=== PATIENT | male | born 1990 | race Caucasian/White ===

== ENCOUNTER 2016-06-16 19:15 | Observation (INO) | payer OTHER ==
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
[2016-06-16 19:33] VITALS: BP 99/60; PULSE 81; BMI 25.3
[2016-06-16 19:41] VITALS: TEMP 97.8
[2016-06-16 19:58] LABS: BASOPHIL 0.1 % (0-2.0); EOSINOPHIL 0.3 % (0-4.5); MCH 25.6 pg (25.7-33.7); MCHC 32.5 g/dl (32.0-35.9); MEAN CELL VOLUME 78.8 fl (80-96); MEAN PLT VOLUME 8.9 fl (7.5-11.1); NEUTROPHILS 83.5 % (42.8-82.8); PLATELET COUNT 241 K/MM3 (134-434); RDW 13.9 % (11.9-15.9); WHITE BLOOD COUNT 13.1 K/mm3 (4.0-10.0)
[2016-06-16 20:27] LABS: ALBUMIN 4.3 g/dl (3.4-5.0); ALK PHOS 73 U/L (45-117); ANION GAP 9 (8-16); BILIRUBIN,TOTAL 0.5 mg/dL (0.2-1.0); CALCIUM 9.5 mg/dL (8.5-10.1); CO2 27 mmol/L (21-32); CREATININE 1.2 mg/dL (0.7-1.3); GLUCOSE,RANDOM 119 mg/dL (74-106); SGOT/AST 16 U/L (15-37); SGPT/ALT 33 U/L (12-78); TOT PROT 7.5 g/dl (6.4-8.2)
--- NOTE | 2016-06-17 13:19 | EKG ---
Test Reason : Blood Pressure : / mmHG Vent. Rate : 076 BPM Atrial Rate : 076 BPM P-R Int : 164 ms QRS Dur : 104 ms QT Int : 376 ms P-R-T Axes : 071 062 044 degrees QTc Int : 423 ms NORMAL SINUS RHYTHM NONSPECIFIC ST ABNORMALITY ABNORMAL ECG WHEN COMPARED WITH ECG OF 20-MAY-2016 12:45, NO SIGNIFICANT CHANGE WAS FOUND Confirmed by MD REENA, SERENE ([id number]) on 06/17/2016 1:19:29 PM Referred By: Overread By: SERENE VALLES MD
== END 2016-06-17 00:05 | disposition home or self-care (01) ==
LOC: JER 19:15 → JERBED 21:37
PROVIDERS: ADMIT Internal Medicine; ATTEND Internal Medicine
DX: G40.89 Other seizures (principal); G31.84 Mild cognitive impairment of uncertain or unknown etiology; F12.10 Cannabis abuse, uncomplicated
CPT/HCPCS: 36415; 70450-TC; 80053; 82550; 82553; 84146; 85025; 93005; 93010; 99282-25; G0378; G0479

== ENCOUNTER 2017-08-08 07:45 | Emergency (ER) | payer OTHER ==
--- NOTE | 2017-08-08 07:53 | PDOC ---
History of Present Illness - General Stated Complaint: SEIZURE Time Seen by Provider: 08/08/17 07:52 - History of Present Illness Initial Comments: 08/08/17 08:15 Mr. Wahl is a 26 yo male w/ prior history of seizures who presents after witnessed seizure earlier today. Per girlfriend who is accompanying him he "jumped out of bed" and started shaking all over his body and foaming at the mouth. They report he was disoriented for approximately 15 minutes after this and then came to get checked out. Mr. Wahl reports he has been intermittent with his proscribed 100mg TID dilantin but that he has been taking a bar of xanax 3-4 times / week and not sleeping much. He has previously seen a neurologist before but recently decided to change to a different one and has an appointment scheduled for Saturday. The patient denies chest pain, shortness of breath, headache and dizziness. Denies fever, chills, nausea, vomit, diarrhea and constipation. Denies dysuria, frequency, urgency and hematuria. Allergies: NKDA Past History - Past Medical History Allergies/Adverse Reactions: Allergies Allergy/AdvReac Type Severity Reaction Status Date / Time No Known Allergies Allergy Verified 08/08/17 07:49 Home Medications: Ambulatory Orders No Home Medications 0 dose .ROUTE UTDICT 04/08/12 levETIRAcetam [Keppra -] 500 mg PO BID #60 tablet 06/16/16 - Surgical History Appendectomy: Yes - Immunization History Immunization Up to Date: Yes - Suicide/Smoking/Psychosocial Hx Smoking Status: No Smoking History: Never smoked Have you smoked in the past 12 months: No Number of Cigarettes Smoked Daily: 0 Hx Alcohol Use: No Drug/Substance Use Hx: Yes (Marijuana) Substance Use Type: Marijuana Review of Systems - Review of Systems Comments:: 08/08/17 08:23 GENERAL/CONSTITUTIONAL: No fever or chills. No weakness. HEAD, EYES, EARS, NOSE AND THROAT: No change in vision. No ear pain or discharge. No sore throat. CARDIOVASCULAR: No chest pain or shortness of breath RESPIRATORY: No cough, wheezing, or hemoptysis. GASTROINTESTINAL: No nausea, vomiting, diarrhea or constipation. GENITOURINARY: No dysuria, frequency, or change in urination. MUSCULOSKELETAL: No joint or muscle swelling or pain. No neck or back pain. SKIN: No rash NEUROLOGIC: +Seizing as described - last in June ENDOCRINE: No increased thirst. No abnormal weight change HEMATOLOGIC/LYMPHATIC: No anemia, easy bleeding, or history of blood clots. ALLERGIC/IMMUNOLOGIC: No hives or skin allergy. *Physical Exam - Physical Exam Comments: 08/08/17 08:25 GENERAL: Awake, alert, and fully oriented, in no acute distress HEAD: No signs of trauma, normocephalic, atraumatic EYES: PERRLA, EOMI, sclera anicteric, conjunctiva clear ENT: Auricles normal inspection, hearing grossly normal, nares patent, oropharynx clear without exudates. Moist mucosa NECK: Normal ROM, supple, no lymphadenopathy, JVD, or masses LUNGS: No distress, speaks full sentences, clear to auscultation bilaterally HEART: Regular rate and rhythm, normal S1 and S2, no murmurs, rubs or gallops, peripheral pulses normal and equal bilaterally. ABDOMEN: Soft, nontender, normoactive bowel sounds. No guarding, no rebound. No masses EXTREMITIES: Normal inspection, Normal range of motion, no edema. No clubbing or cyanosis. NEUROLOGICAL: Cranial nerves II through XII grossly intact. Normal speech, normal gait, no focal sensorimotor deficits SKIN: Warm, Dry, normal turgor, no rashes or lesions noted. ED Treatment Course - LABORATORY CBC & Chemistry Diagram: 08/08/17 09:05 08/08/17 09:05 Medical Decision Making - Medical Decision Making 08/08/17 08:25 Mr. Wahl is a 26 yo male w/ pmh of seizures who presents post described generalized tonic/clonic seizure with post-ictal state. Patient counseled that xanax, lack of sleep, and intermittent medication use will lower seizure threshold and make him more at risk. Patient verbalized understanding and reports that he will follow-up with Dr. Saunders on Saturday at appointment. 08/08/17 10:01 Basic labs unconcerning as below. Will discharge patient with instructions to take seizure prophylaxis as written and follow-up with Dr. Saunders on Saturday. Discussed increase in Creatinine with patient and need to f/u with PCP for further testing. Slightly elevated AST/ALT noted without concern as patient's abdominal exam non-concerning; copy of bloodwork given to patient as well to trend over time. Patient verbalized understanding and agreement with plan and will comply. Laboratory Results - last 24 hr 08/08/17 08/08/17 09:05 09:05 WBC 10.4 H RBC 5.46 Hgb 14.5 Hct 46.0 MCV 84.2 MCH 26.5 MCHC 31.5 L RDW 15.1 Plt Count 282 MPV 9.4 Neutrophils % 62.9 D Lymphocytes % 25.6 D Monocytes % 9.6 Eosinophils % 1.3 D Basophils % 0.6 D Sodium 135 L Potassium 4.4 Chloride 101 Carbon Dioxide 27 Anion Gap 7 L BUN 11 Creatinine 1.4 H Creat Clearance w eGFR > 60 Random Glucose 79 D Calcium 8.4 L Total Bilirubin 0.4 AST 76 H D ALT 85 H D Alkaline Phosphatase 70 Total Protein 6.9 Albumin 3.8 *DC/Admit/Observation/Transfer Diagnosis at time of Disposition: Seizure - Discharge Dispostion Disposition: HOME - Referrals Referrals: Josiah Saunders MD [Staff Physician] - - Patient Instructions Printed Discharge Instructions: DI for Seizure (Not Epilepsy/Seizure Disorder) Additional Instructions: Please follow-up with your neurologist at your Saturday appointment as discussed. It is very important you take your dilantin as proscribed and decrease behaviors that lower your seizure threshold (drinking alcohol, using medications such as xanax, getting poor sleep). Please return if any further seizure, altered mental status, pain, fever, or other concerning symptoms. - Post Discharge Activity
[2017-08-08 07:55] VITALS: BMI 26.6
[2017-08-08] MEDS ORDERED: PHENYTOIN SODIUM 100 MG/2 ML VIAL IVPB ONE (08:18)
--- NOTE | 2017-08-08 08:23 | PDOC ---
Attending Attestation - HPI HPI: 08/08/17 08:24 The patient is a 26 year old male with a significant PMH of seizures ( intermittently compliant with Dilantin) and Xanax abuse who presents to the emergency department s/p witnessed seizure approximately 1 hour ago. He reports being in bed this morning with his girlfriend when he fell out of bed and began seizing for about 5 minutes with 15 minutes of post-ictal state. The patient is alert and awake at presentation. He has intermittently followed up with Neuro in the past but notes he has an appointment with Dr. Saunders on Saturday. He denies any other complaints. Allergies: NKA PCP: None reported. - Physicial Exam PE: 08/08/17 08:24 Vitals: Triage Vital signs reviewed General Appearance: no acute distress, well nourished well developed, Head: Atraumatic, normocephalic Eyes: Pupils equal reactive round, extraocular movement intact Cardiac: Regular rate and rhythm, no murmurs, no rubs, no gallops, Lungs: Clear to auscultation bilateral, good air movement bilaterally, Abdomen: Soft, nondistended, normal bowel sounds, nontender to palpation Extremities: Full range of motion to all extremities, no cyanosis, clubbing, or edema Neuro: AOX3; Cranial Nerves 2-12 grossly intact, Strength intact to all extremities, Sensation intact to all extremities Psych: normal mood, normal affect <Edmar Geronimo - Last Filed: 08/08/17 09:09> - Resident Resident Name: Maxwell Valencia - ED Attending Attestation I have performed the following: I have examined & evaluated the patient, The case was reviewed & discussed with the resident, I agree w/resident's findings & plan, Exceptions are as noted - Medical Decision Making 08/08/17 10:23 26 years old past medical history significant for seizure disorder noncompliant with Keppra presents to the ED with a generalized tonic-clonic seizure with a slight postictal period normal neurologic examination at this time. Patient's back to his baseline mental status. States that he has been staying up late at night has been recreationally using drugs and noncompliant with his Keppra Here in the emergency department we have loaded him with 1 g of dilantin. His labs are notable for slightly elevated creatinine and slightly elevated LFTs. These findings were discussed length with patient he will hydrate avoid drugs and follow-up with his doctor next week to have these rechecked. He states he has enough of his dilantin at home. He has a neurology follow-up appointment on Saturday Findings, need follow-up, strict return instructions discussed with patient. 08/08/17 15:16 <Khanh Lorenzo - Last Filed: 08/08/17 15:16>
[2017-08-08] MEDS ORDERED: PHENYTOIN NA EXTENDED 100 MG CAPSULE (FP) PO ONE (08:28)
[2017-08-08 09:24] LABS: BASO % 0.6 % (0-2.0); EOS % 1.3 % (0-4.5); HEMOGLOBIN 14.5 GM/dL (11.7-16.9); LYMPH % 25.6 % (8-40); MCH 26.5 pg (25.7-33.7); MCHC 31.5 g/dl (32.0-35.9); MEAN CELL VOLUME 84.2 fl (80-96); MEAN PLT VOLUME 9.4 fl (7.5-11.1); MONO % 9.6 % (3.8-10.2); NEUT % 62.9 % (42.8-82.8); PLATELET COUNT 282 K/MM3 (134-434); RBC 5.46 M/mm3 (4.00-5.60); RDW 15.1 % (11.9-15.9); WHITE BLOOD COUNT 10.4 K/mm3 (4.0-10.0)
[2017-08-08 09:48] LABS: ALBUMIN 3.8 g/dl (3.4-5.0); ANION GAP 7 (8-16); BILIRUBIN,TOTAL 0.4 mg/dL (0.2-1.0); BLOOD UREA NITROGEN 11 mg/dL (7-18); CALCIUM 8.4 mg/dL (8.5-10.1); CHLORIDE 101 mmol/L (98-107); CO2 27 mmol/L (21-32); CREATININE 1.4 mg/dL (0.7-1.3); GLUCOSE,RANDOM 79 mg/dL (74-106); SGPT/ALT 85 U/L (12-78); SODIUM 135 mmol/L (136-145); TOT PROT 6.9 g/dl (6.4-8.2)
[2017-08-08 09:49] LABS: ALK PHOS 70 U/L (45-117)
[2017-08-08 09:50] LABS: POTASSIUM 4.4 mmol/L (3.5-5.1); SGOT/AST 76 U/L (15-37)
[2017-08-08 10:46] VITALS: BP 132/87; PULSE 84; TEMP 98.2
--- NOTE | 2017-08-08 16:08 | EKG ---
Test Reason : Blood Pressure : / mmHG Vent. Rate : 079 BPM Atrial Rate : 079 BPM P-R Int : 172 ms QRS Dur : 096 ms QT Int : 368 ms P-R-T Axes : 072 053 023 degrees QTc Int : 421 ms NORMAL SINUS RHYTHM POSSIBLE LEFT ATRIAL ENLARGEMENT NONSPECIFIC ST AND T WAVE ABNORMALITY ABNORMAL ECG WHEN COMPARED WITH ECG OF 16-JUN-2016 19:41, NO SIGNIFICANT CHANGE WAS FOUND Confirmed by MAGAN RING, MARCE ([id number]) on 08/08/2017 4:08:09 PM Referred By: Confirmed By:MARCE CARRERO MD
== END 2017-08-08 10:45 | disposition home or self-care (01) ==
LOC: JER 07:45
DX: R56.9 Unspecified convulsions (principal)
CPT/HCPCS: 36415; 80053; 85025; 93005; 93010; 99284-25

== ENCOUNTER 2017-09-29 01:33 | Emergency (ER) | payer OTHER ==
--- NOTE | 2017-09-29 02:01 | PDOC ---
History of Present Illness - General History Source: Patient, Parent(s) (Mother ) - History of Present Illness Initial Comments: 09/29/17 04:22 The patient is a 26 year old male with significant past medical history of seizures is brought to the ED accompanied by his mother post seizure episode earlier today. The patient states he blackout and doesnt recall the incident. As per the mother, the patient was lying on the bed when the episode manifested and he fell off the bed. The patient states he tried to catch his body with his hand which resulted in a sprain to his left pinky, pain to his right forearm, lower jaw redness and tenderness to his right cheeks. Social History: Patient reports the use of Marijuana. Denies the use of any other recreational drugs, denies history of smoking and the use of alcohol. Allergies: None reported. <Dolores Laird - Last Filed: 09/29/17 04:22> <Sarah Curran - Last Filed: 09/30/17 04:48> - General Chief Complaint: Seizure Stated Complaint: SEIZURE Time Seen by Provider: 09/29/17 01:58 Past History <Dolores Laird - Last Filed: 09/29/17 04:22> - Past Medical History COPD: No Seizures: Yes - Surgical History Appendectomy: Yes - Immunization History Immunization Up to Date: Yes - Suicide/Smoking/Psychosocial Hx Smoking Status: No Smoking History: Never smoked Have you smoked in the past 12 months: No Number of Cigarettes Smoked Daily: 0 Hx Alcohol Use: No Drug/Substance Use Hx: Yes (marijuana) Substance Use Type: Marijuana Hx Substance Use Treatment: No <Sarah Curran - Last Filed: 09/30/17 04:48> - Past Medical History Allergies/Adverse Reactions: Allergies Allergy/AdvReac Type Severity Reaction Status Date / Time No Known Allergies Allergy Verified 08/30/17 15:44 Home Medications: Ambulatory Orders Phenytoin Na Extended [Dilantin -] 200 mg PO BID #60 capsule 08/09/17 Phenytoin Na Extended [Dilantin -] 200 mg PO BID #120 capsule 09/29/17 Review of Systems - Review of Systems Able to Perform ROS?: Yes Comments:: 09/29/17 04:22 GENERAL/CONSTITUTIONAL: No fever or chills. No weakness. HEAD, EYES, EARS, NOSE AND THROAT: No change in vision. No ear pain or discharge. No sore throat. CARDIOVASCULAR: No chest pain or shortness of breath. RESPIRATORY: No cough, wheezing, or hemoptysis. GASTROINTESTINAL: No nausea, vomiting, diarrhea or constipation. GENITOURINARY: No dysuria, frequency, or change in urination. MUSCULOSKELETAL: (+) left pinky swollen and dislocated. (+) Jaw redness. (+) pain on the cheek bone. No muscle swelling. No neck or back pain. SKIN: No rash NEUROLOGIC: (+) Loss of consciousness, episode of seizure. No headache, vertigo , or change in strength/sensation. ENDOCRINE: No increased thirst. No abnormal weight change. HEMATOLOGIC/LYMPHATIC: No anemia, easy bleeding, or history of blood clots. ALLERGIC/IMMUNOLOGIC: No hives or skin allergy. <Dolores Laird - Last Filed: 09/29/17 04:22> *Physical Exam - Vital Signs Last Vital Signs Temp Pulse Resp BP Pulse Ox 96.1 F L 75 17 132/78 100 09/29/17 01:40 09/29/17 01:40 09/29/17 01:40 09/29/17 01:40 09/29/17 01:40 - Physical Exam Comments: 09/29/17 04:23 GENERAL: Awake, alert, and fully oriented X3, in no acute distress HEAD: No signs of trauma EYES: PERRLA, EOMI, sclera anicteric, conjunctiva clear ENT: Auricles normal inspection, hearing grossly normal, nares patent, oropharynx clear without exudates. Moist mucosa NECK: Normal ROM, supple, no lymphadenopathy, JVD, or masses LUNGS: Breath sounds equal, clear to auscultation bilaterally. No wheezes, and no crackles HEART: Regular rate and rhythm, normal S1 and S2, no murmurs, rubs or gallops ABDOMEN: Soft, nontender, normoactive bowel sounds. No guarding, no rebound. No masses EXTREMITIES: (+) Left pinky dislocated ([place] neck deformity). Tenderness to palpation of the right zygomatic bone. (+) abrasion on the chin. Normal range of motion, no edema. No clubbing or cyanosis. No cords. NEUROLOGICAL: No nystagmus. Cranial nerves II through XII grossly intact. Normal speech, normal gait SKIN: Warm, Dry, normal turgor, no rashes or lesions noted. <Dolores Laird - Last Filed: 09/29/17 04:22> ED Treatment Course - ADDITIONAL ORDERS Additional order review: Laboratory Results 09/29/17 03:06 Phenytoin < 2.5 L - Medications Given in the ED: ED Medications Discontinued Medications Generic Name Dose Route Start Last Admin Trade Name Amelia PRN Reason Stop Dose Admin Bacitracin 1 applic 09/29/17 02:10 09/29/17 02:46 Bacitracin - TP 09/29/17 02:11 1 strip ONCE ONE Administration Diphtheria/Tetanus/Acell Pertussis 0.5 ml 09/29/17 02:10 09/29/17 02:45 Boostrix - IM 09/29/17 02:11 0.5 ml .ONCE ONE Administration Oxycodone/Acetaminophen 2 combo 09/29/17 02:41 09/29/17 02:45 Percocet 5/325 - PO 09/29/17 02:42 2 combo ONCE ONE Administration <Dolores Laird - Last Filed: 09/29/17 04:22> Medical Decision Making - Medical Decision Making 09/29/17 04:25 Patient Name: NICK WALL THIS IS A PRELIMINARY REPORT FROM [facility] DATE OF SERVICE: 2017-09-29 03:42:42 IMAGES: [id number] EXAM: HEAD CT WITHOUT CONTRAST HISTORY: Seizure COMPARISON: None. FINDINGS: The ventricular system is midline and nondilated. The sulcal pattern is normal for the patient's age. There is no bleed, mass, extra-axial fluid collection or mass effect. No skull fracture or skull lesion is identified. The visualized paranasal sinuses and mastoid air cells are clear. IMPRESSION: Normal exam Patient Name: NICK WALL THIS IS A PRELIMINARY REPORT FROM [facility] DATE OF SERVICE: 2017-09-29 03:45:10 IMAGES: [id number] EXAM: FACIAL BONES CT W/O CONTRAST HISTORY: Seizure COMPARISON: None. FINDINGS: The intraorbital contents are intact. The sinuses and visualized mastoid air cells are well aerated other than mild left ethmoid sinus mucosal thickening. There is no fracture. IMPRESSION: No fracture. 09/30/17 04:48 Pt loaded with phosphenytoin and he will be signed out to the day team. <Sarah Curran - Last Filed: 09/30/17 04:48> *DC/Admit/Observation/Transfer - Attestations Scribe Attestion: 09/29/17 04:23 Documentation prepared by Dolores Laird, acting as medical policy specialist for Sarah Curran MD. <Dolores Laird - Last Filed: 09/29/17 04:22> - Discharge Dispostion Admit: No <Sarah Curran - Last Filed: 09/30/17 04:48> Diagnosis at time of Disposition: Seizure, Finger dislocation - Discharge Dispostion Disposition: HOME Condition at time of disposition: Stable - Prescriptions Prescriptions: Phenytoin Na Extended [Dilantin -] 200 mg PO BID #120 capsule - Patient Instructions Printed Discharge Instructions: DI for Finger Dislocation, DI for Seizure Disorder -- Child
[2017-09-29 02:05] VITALS: BP 132/78; PULSE 75; TEMP 96.1; BMI 28.4
[2017-09-29] MEDS ORDERED: DIPHTH,PERTUSS(ACELL),TET 0.5 ML DISP.SYRIN IM ONE (02:10)
[2017-09-29] MEDS ORDERED: BACITRACIN 15 GM TUBE TOPICAL OINTMENT TP ONE (02:10)
[2017-09-29] MEDS ORDERED: LIDOCAINE HCL 2% (50ML VIAL) INF ONE (04:28)
[2017-09-29] MEDS ORDERED: FOSPHENYTOIN SODIUM 1,000 MG in SODIUM CHLORIDE 100 ML IVPB ONE (04:31)
[2017-09-29] MEDS ORDERED: LIDOCAINE HCL 2% (20ML MULTI-DOSE VIAL) NR ONE (04:51)
[2017-09-29] MEDS ORDERED: FOSPHENYTOIN SODIUM 100 MG/2 ML VIAL ONE (05:24)
== END 2017-09-29 06:10 | disposition home or self-care (01) ==
LOC: JER 01:33
PROC: 3E0234Z Introduction of Serum, Toxoid and Vaccine into Muscle, Percutaneous Approach (ICD-10-PCS; principal; 2017-09-29)
PROC: 3E033GC Introduction of Other Therapeutic Substance into Peripheral Vein, Percutaneous Approach (ICD-10-PCS; 2017-09-29)
DX: G40.909 Epilepsy, unspecified, not intractable, without status epilepticus (principal); S63.276A Dislocation of unspecified interphalangeal joint of right little finger, initial encounter; S00.83XA Contusion of other part of head, initial encounter; S09.93XA Unspecified injury of face, initial encounter; W06.XXXA Fall from bed, initial encounter; Y93.89 Activity, other specified; Y92.032 Bedroom in apartment as the place of occurrence of the external cause
CPT/HCPCS: 36415; 70450-TC; 70486-TC; 73140-TC-LT-FY; 80185; 90471; 90715; 96374; 99284-25

== ENCOUNTER 2017-11-29 15:39 | Emergency (ER) | payer OTHER ==
[2017-11-29 15:57] VITALS: BP 103/68; PULSE 74; TEMP 97.4; BMI 25.8
--- NOTE | 2017-11-29 16:02 | PDOC ---
History of Present Illness - General Chief Complaint: Seizure Stated Complaint: SEIZURE Time Seen by Provider: 11/29/17 15:57 - History of Present Illness Initial Comments: 11/29/17 16:01 27 yo M with h/o epilepsy (x 2 years 10+ seizures) who p/w closed head injury s/ p suspected seizure. Patient with unwitnessed seizure at 2:30 PM. Friends and family at bedside to assist in report. Patient cousin states that patient went upstairs and came back down stairs 8 minutes later with abrasions to the head, and blood in mouth. Patient was ambulating without difficulty, but confused and unintelligible, and non responsive to questions for 30 minutes. Patient does not recall LOC, fall, but reports diffuse headache, and multiple episodes of blood streaked emesis (now resolved). Patient in usual state of health prior to event. Last seizure 1 1/2 month ago per patient. He reports missing his home dose of anti-convulsive medication ( 200 mg Dilantin BID and Lamictal 75 mg BID ) yesterday evening, but reports taking his home dose today. Recently received head MRI 3 days ago. No longer on Keppra 500 mg d/t unfavorable SE profile. Denies F/C, N/V, vertigo, hearing loss, tinnitus, vision change, CP, SOB, abdominal pain, diarrhea, constipation, urinary complaints,back pain, neck pain , weakness, lightheadedness, sensory changes. PMHx: as noted above. Does not follow with neruology. States that he receives his medication from unknown physician on [facility]. ROS: as noted above SHx: Denies Etoh, or tobacco use. Reports daily recreational cannabis/marijuana (non prescribed) for seizure control. Allergies: NKDA Past History - Past Medical History Allergies/Adverse Reactions: Allergies Allergy/AdvReac Type Severity Reaction Status Date / Time No Known Allergies Allergy Verified 11/29/17 15:45 Home Medications: Ambulatory Orders Phenytoin Na Extended [Dilantin -] 200 mg PO BID #120 capsule 09/29/17 Lamotrigine [Lamictal -] 75 mg PO BID 11/29/17 COPD: No Seizures: Yes - Surgical History Abdominal Surgery: Yes (hernia) Appendectomy: Yes - Immunization History Immunization Up to Date: Yes - Suicide/Smoking/Psychosocial Hx Smoking Status: No Smoking History: Never smoked Have you smoked in the past 12 months: No Number of Cigarettes Smoked Daily: 0 Information on smoking cessation initiated: No Hx Alcohol Use: No Drug/Substance Use Hx: Yes Substance Use Type: Marijuana Hx Substance Use Treatment: No Review of Systems - Review of Systems Comments:: 11/29/17 16:01 GENERAL/CONSTITUTIONAL: No fever or chills. No weakness. HEAD, EYES, EARS, NOSE AND THROAT: No change in vision. No ear pain or discharge. No sore throat. CARDIOVASCULAR: No chest pain or shortness of breath RESPIRATORY: No cough, wheezing, or hemoptysis. GASTROINTESTINAL: No nausea, vomiting, diarrhea or constipation. GENITOURINARY: No dysuria, frequency, or change in urination. MUSCULOSKELETAL: No joint or muscle swelling or pain. No neck or back pain. SKIN: No rash NEUROLOGIC: + headache. No vertigo, loss of consciousness, or change in strength /sensation. ENDOCRINE: No increased thirst. No abnormal weight change HEMATOLOGIC/LYMPHATIC: No anemia, easy bleeding, or history of blood clots. ALLERGIC/IMMUNOLOGIC: No hives or skin allergy. *Physical Exam - Vital Signs Last Vital Signs Temp Pulse Resp BP Pulse Ox 97.4 F L 74 20 103/68 100 11/29/17 15:54 11/29/17 15:54 11/29/17 15:54 11/29/17 15:54 11/29/17 15:54 - Physical Exam Comments: 11/29/17 16:01 GENERAL: Awake, alert, and fully oriented, in no acute distress HEAD:+ frontal ecchymosis and abrasions. No lacerations. EYES: PERRLA, EOMI, sclera anicteric, conjunctiva clear ENT: + Bilateral tongue lacerations, with absent teeth avulsions. Auricles normal inspection, hearing grossly normal, nares patent, oropharynx clear without exudates. Moist mucosa NECK: Normal ROM, supple, no lymphadenopathy, JVD, or masses LUNGS: No distress, speaks full sentences, clear to auscultation bilaterally HEART: Regular rate and rhythm, normal S1 and S2, no murmurs, rubs or gallops, peripheral pulses normal and equal bilaterally. ABDOMEN: Soft, nontender, normoactive bowel sounds. No guarding, no rebound. No masses EXTREMITIES : Normal inspection, Normal range of motion, no edema. No clubbing or cyanosis. NEUROLOGICAL: Cranial nerves II through XII grossly intact. Normal speech, normal gait, no focal sensorimotor deficits SKIN: Warm, Dry, normal turgor, no rashes or lesions noted ED Treatment Course - LABORATORY CBC & Chemistry Diagram: 11/29/17 17:09 11/29/17 17:09 Medical Decision Making - Medical Decision Making 11/29/17 17:00 27 yo M with h/o epilepsy (x 2 years) who p/w closed head injury s/p suspected seizure. VSS, AF, A&Ox3. Patient with signs of head injury, following probable unwitnessed convulsions in setting of seizure disorder, new onset tongue lacerations, postictal weakness/confusion, and missed dose of anti-convulsant medications. [place] CT head rule neg and C-spine neg nexus criteria. Will assess for possible precipitators of seizure with potential to lower seizure threshold, electrolyte abnml, toxic or metabolic derangements,acid-base disturbances, or underlying infection. ED Course: CBC, CMP, Dilantin, UA EKG, CXR 100 mg Lamictal 11/29/17 19:38 Phenytoin 2.7 WBC:15.9 CMP: Unremarkable UA: Neg Etoh: Neg Patient with second witnessed seizure in hallway, with absent LOC, head/neck/ back trauma at 09:00PM. Received 2 Ativan and his Loading dose of Phenytoin given. 1090 mg. + episode of urinary incontinence, tongue biting, and AMS. 11/29/17 22:08 Patient no longer postictal, A&Ox3, VSS. 11/29/17 23:42 Patient stable for d/c with return precautions. *DC/Admit/Observation/Transfer - Referrals - Patient Instructions Additional Instructions: Please return to the emergency department with any new or worsening symptoms or concerns. Please follow up with your primary care physician within 72 hours. - Post Discharge Activity - Attestations Physician Attestion: 11/29/17 16:02 I attest to the information provided in this note.
[2017-11-29 17:35] LABS: BASO % 0.4 % (0-2.0); EOS % 0.6 % (0-4.5); HEMATOCRIT 43.6 % (35.4-49); HEMOGLOBIN 14.4 GM/dL (11.7-16.9); LYMPH % 10.8 % (8-40); MCH 27.4 pg (25.7-33.7); MEAN CELL VOLUME 82.9 fl (80-96); MEAN PLT VOLUME 9.4 fl (7.5-11.1); MONO % 7.9 % (3.8-10.2); NEUT % 80.3 % (42.8-82.8); PLATELET COUNT 235 K/MM3 (134-434); RBC 5.25 M/mm3 (4.00-5.60); RDW 14.3 % (11.9-15.9); WHITE BLOOD COUNT 15.9 K/mm3 (4.0-10.0)
[2017-11-29 17:39] LABS: URINE APPEARANCE CLEAR; URINE BILIRUBIN NEGATIVE (<2.0 mg/dL); URINE BLOOD NEGATIVE (NEGATIVE); URINE COLOR STRAW; URINE GLUCOSE (UA) NEGATIVE (NEGATIVE); URINE KETONE NEGATIVE (NEGATIVE); URINE LEUK ESTERASE NEGATIVE (NEGATIVE); URINE NITRITE NEGATIVE (NEGATIVE); URINE UROBILINOGEN NEGATIVE mg/dL (0.2-1.0)
[2017-11-29 17:46] LABS: URINE PROTEIN 1+ (NEGATIVE)
[2017-11-29 17:49] LABS: INR 0.97 (0.82-1.09)
[2017-11-29] MEDS ORDERED: lamoTRIgine 100 MG TABLET (FP) PO ONE (17:49)
--- NOTE | 2017-11-29 17:49 | PDOC ---
Attending Attestation - Resident Resident Name: Sushant Maynard - ED Attending Attestation I have performed the following: I have examined & evaluated the patient, The case was reviewed & discussed with the resident, I agree w/resident's findings & plan, Exceptions are as noted - Medical Decision Making 11/29/17 17:48 27yoM w/ hx of seizure d/o presents w/ seizure in setting of missing his seizure meds last night. Seems to have had typical seizure for him today. - labs w/ dilantin level - load meds - DC if all urnemarkble. <Linda Abdullahi - Last Filed: 11/29/17 17:48> - HPI HPI: 11/29/17 19:39 The patient is a 27 year old male with a significant PMH of seizures secondary to epilepsy and Xanax abuse who presents to the emergency department with a seizure about 3 hours ago. The patient reports that he was at home earlier today when he had his seizure episode. The patient reports that he experienced associated bloody vomiting secondary to tongue biting. The patient states that he missed his doses of medication last night. The patient states though that he took his doses earlier today.He denies any symptoms prior to his seizure. The patient replies that he does not usually know when his episode is going to happen. He states that his last seizure episode was about 1 month ago. The patient denies any other symptoms at time of exam. He denies chest pain, shortness of breath, headache and dizziness. He denies fever, chills, nausea, vomit, diarrhea, constipation or urinary symptoms. The patient denies any other complaints. - Physicial Exam PE: 11/29/17 19:42 General Physical Exam:Awake, alert, and fully oriented, in no acute distress HEENT:(+)bruises around face. EOMI, AISHWARYA MMM, OP WNL NCAT, no midline cervical tenderness CARDIO:RRR, nl s1/s2, no m/r/g LUNGS:CTABL, no w/r/r ABDOMEN:Soft, NTND EXTREMITIES:No edema, WWP, no rash NEURO:Neuro grossly intact, gait WNL, moving all 4 A&O x 3, mood/affect WNL. Documentation prepared by Olamide Arellano, acting as biomedical engineering technologist for Linda Abdullahi MD. <Olamide Arellano - Last Filed: 11/29/17 19:42>
[2017-11-29 17:53] LABS: ALBUMIN 4.4 g/dl (3.4-5.0); ANION GAP 6 (8-16); BLOOD UREA NITROGEN 11 mg/dL (7-18); CALCIUM 9.5 mg/dL (8.5-10.1); CHLORIDE 105 mmol/L (98-107); CO2 27 mmol/L (21-32); GLUCOSE,RANDOM 91 mg/dL (74-106); POTASSIUM 4.2 mmol/L (3.5-5.1); SODIUM 138 mmol/L (136-145)
[2017-11-29 18:19] LABS: ALK PHOS 94 U/L (45-117); BILIRUBIN,TOTAL 0.2 mg/dL (0.2-1.0); SGOT/AST 22 U/L (15-37); SGPT/ALT 31 U/L (12-78); TOT PROT 7.7 g/dl (6.4-8.2)
[2017-11-29 18:30] LABS: URINE BACTERIA RARE /hpf (NONE SEEN); URINE MUCUS RARE
[2017-11-29] MEDS ORDERED: lamoTRIgine 25 MG TABLET ONE ×2 (18:43→18:44)
[2017-11-29] MEDS ORDERED: PHENYTOIN SODIUM 100 MG/2 ML VIAL IVPB ONE (19:38)
[2017-11-29] MEDS ORDERED: PHENYTOIN SODIUM IVPB ONE (20:15)
[2017-11-29] MEDS ORDERED: SODIUM CHLORIDE IVPB ONE (20:15)
[2017-11-29] MEDS ORDERED: LORazepam 2 MG/ML SDV VIAL ONE (20:34)
[2017-11-29] MEDS ORDERED: ONDANSETRON 4 MG/2 ML VIAL IVPB ONE (22:53)
[2017-11-29] MEDS ORDERED: ONDANSETRON 4 MG/2 ML VIAL ONE (23:00)
--- NOTE | 2017-11-30 17:49 | EKG ---
Test Reason : Blood Pressure : / mmHG Vent. Rate : 067 BPM Atrial Rate : 067 BPM P-R Int : 170 ms QRS Dur : 100 ms QT Int : 404 ms P-R-T Axes : 062 051 045 degrees QTc Int : 426 ms NORMAL SINUS RHYTHM NORMAL ECG WHEN COMPARED WITH ECG OF 08-AUG-2017 09:24, NO SIGNIFICANT CHANGE WAS FOUND Confirmed by NASIR ANTHONY MD ([id number]) on 11/30/2017 5:48:33 PM Referred By: Confirmed By:NASIR ANTHONY MD
== END 2017-11-30 02:21 | disposition home or self-care (01) ==
LOC: JER 15:39
DX: G40.909 Epilepsy, unspecified, not intractable, without status epilepticus (principal); S00.83XA Contusion of other part of head, initial encounter; S01.512A Laceration without foreign body of oral cavity, initial encounter; R41.82 Altered mental status, unspecified; Z91.14 Patient's other noncompliance with medication regimen; X58.XXXA Exposure to other specified factors, initial encounter; Y93.89 Activity, other specified; Y92.018 Other place in single-family (private) house as the place of occurrence of the external cause; Y99.8 Other external cause status
CPT/HCPCS: 36415; 71045-TC-FY; 80053; 80185; 80307; 81003; 81015; 85025; 85610; 86850; 86900; 86901; 93005; 93010; 99284-25

== ENCOUNTER 2018-01-19 22:51 | Emergency (ER) | payer OTHER ==
[2018-01-19 23:05] VITALS: BMI 25.0
--- NOTE | 2018-01-20 00:06 | PDOC ---
Attending Attestation - Resident Resident Name: PedroElisa - ED Attending Attestation I have performed the following: I have examined & evaluated the patient, The case was reviewed & discussed with the resident, I agree w/resident's findings & plan - Medical Decision Making 01/20/18 01:59 Patient Name: NICK WALL THIS IS A PRELIMINARY REPORT FROM [employer]PER[employer] DATE OF SERVICE: 2018-01-20 00:35:59 IMAGES: [id number] EXAM: CERVICAL SPINE CT W/O CONTR HISTORY: Status post fall COMPARISON: None. FINDINGS: There is no fracture, subluxation, prevertebral soft tissue swelling or significant degenerative changes. The lung apices are clear. IMPRESSION: No fracture. Patient Name: NICK WALL THIS IS A PRELIMINARY REPORT FROM [employer]PERATOR DATE OF SERVICE: 2018-01-20 00:48:08 IMAGES: [id number] EXAM: HEAD CT WITHOUT CONTRAST HISTORY: Status post fall COMPARISON: None. FINDINGS: The ventricular system is midline and nondilated. The sulcal pattern is normal for the patient's age. There is no bleed, mass, extra-axial fluid collection or mass effect. No skull fracture or skull lesion is identified. The visualized paranasal sinuses and mastoid air cells are clear. IMPRESSION: Normal exam. <Sarah Curran - Last Filed: 01/20/18 01:58> - HPI HPI: 01/20/18 01:41 The patient is a 27-year-old male with a past medical history of epilepsy (x 2 years 10+ seizures, on Dilantin, presents to the emergency department s/p an unwitnessed seizure. The patient states he was walking down [facility], when he lost consciousness for an unknown amount of times, patient reports he doesnt remember the incident. The patient states he was found by his brother, who assisted him. The patient reports associated concern of neck pain/stiffness. The patient states hes been non-compliant with Lamictal for the past 2 weeks. Allergies: NKA. Social history: Reports the use of Marijuana. No reported use of cigarettes. Surgical history: Appendectomy and Hernia. - Physicial Exam PE: 01/20/18 02:16 GENERAL: Afebril. Awake, alert, and fully oriented, in no acute distress HEAD: No signs of trauma EYES: R. upper eyelid dry blood/abrasion. (+) Extraocular movement intact. PERRLA, sclera anicteric, conjunctiva clear ENT: Auricles normal inspection, hearing grossly normal, nares patent, oropharynx clear without exudates. Moist mucosa NECK: Normal ROM, supple, no lymphadenopathy, JVD, or masses LUNGS: Breath sounds equal, clear to auscultation bilaterally. No wheezes, and no crackles HEART: Regular rate and rhythm, normal S1 and S2, no murmurs, rubs or gallops ABDOMEN: No flank pain. Soft, nontender, normoactive bowel sounds. No guarding , no rebound. No masses EXTREMITIES: Normal range of motion, no edema. No clubbing or cyanosis. No cords, erythema, or tenderness NEUROLOGICAL: Neurologically intact. Cranial nerves II through XII grossly intact. Normal speech, normal gait SKIN: Warm, Dry, normal turgor, no rashes or lesions noted. No other injury. - Medical Decision Making 01/20/18 01:42 Documentation prepared by Dolores Laird, acting as biomedical equipment technician for Sarah Curran MD. <Dolores Laird - Last Filed: 01/20/18 06:33>
--- NOTE | 2018-01-20 00:34 | PDOC ---
History of Present Illness - General Chief Complaint: Seizure Stated Complaint: SIMONZUCECELIA Time Seen by Provider: 01/19/18 23:32 History Source: Patient Exam Limitations: No Limitations - History of Present Illness Initial Comments: This is a 27 YOM with h/o seizure disorder (on Dilantin for the past year and also supposed to be taking Lamictal but stopped taking it abruptly 2 weeks ago) who p/w report of seizure this evening just [employer]. He notes having been walking outside to the store from his home when he believes he must have lost consciousness and fallen to the ground, because he was found and unknown amount of time later by his brother who was walking to his house. The patient has no memory of the actual event but remembers waking up on the ground with his brother at his side. He had hit the right side of his face and sustained a right eyelid cut. This is the first seizure he has had in months. He additionally notes recent mild subjective fever, bitemporal headache, neck stiffness, new onset difficulty walking and balancing, and generalized mental cloudiness which is also mild. He denies having taken any new medications. He uses marijuana but no additional drugs. The patient states his last tetanus update was definitely within the past 10 years. Past History - Past Medical History Allergies/Adverse Reactions: Allergies Allergy/AdvReac Type Severity Reaction Status Date / Time No Known Allergies Allergy Verified 01/19/18 23:02 Home Medications: Ambulatory Orders Phenytoin Na Extended [Dilantin -] 200 mg PO BID #120 capsule 09/29/17 Lamotrigine [Lamictal -] 75 mg PO BID 11/29/17 CVA: No COPD: No Seizures: Yes - Surgical History Abdominal Surgery: Yes (hernia) Appendectomy: Yes - Immunization History Immunization Up to Date: Yes - Suicide/Smoking/Psychosocial Hx Smoking Status: No Smoking History: Never smoked Have you smoked in the past 12 months: No Number of Cigarettes Smoked Daily: 0 Hx Alcohol Use: No Drug/Substance Use Hx: Yes ([facility]) Substance Use Type: Marijuana Hx Substance Use Treatment: No Review of Systems - Review of Systems Able to Perform ROS?: Yes Constitutional: Yes: Fever. No: Chills, Unexplained wgt Loss HEENTM: No: Nose Congestion, Throat Pain Respiratory: No: Cough, Shortness of Breath Cardiac (ROS): No: Chest Pain, Palpitations ABD/GI: No: Constipated, Diarrhea, Nausea, Vomiting : No: Burning, Dysuria Musculoskeletal: Yes: Neck Pain. No: Back Pain Integumentary: No: Bruising, Rash Neurological: Yes: Headache, Unsteady Gait. No: Numbness, Tingling, Weakness, Dizziness Endocrine: No: Unexplained Weight Gain, Unexplained Weight Loss *Physical Exam - Vital Signs Last Vital Signs Temp Pulse Resp BP Pulse Ox 99.7 F H 87 18 130/92 97 01/19/18 23:02 01/19/18 23:02 01/19/18 23:02 01/19/18 23:02 01/19/18 23:02 - Physical Exam General Appearance: Yes: Nourished, Disheveled, Other (small amount of blood on shirt and hands, ). No: Apparent Distress HEENT: positive: EOMI (without pain), AISHWARYA, Normal Voice, Hearing Grossly Normal , Other (right eyelid superficial laceration which is hemostatic, not requiring repair, right lateral eyebrow hematoma but no scalp contusion, no cephalohematoma, no other scalp laceration, no raccoon eyes, no akers sign, no hemotympanum, no CSF rhinorrhea/otorrhea). negative: Scleral Icterus (R), Scleral Icterus (L), Nasal Congestion Neck: positive: Trachea midline, Supple. negative: Tender, Rigid, Lymphadenopathy (R), Lymphadenopathy (L) Respiratory/Chest: positive: Lungs Clear, Normal Breath Sounds. negative: Respiratory Distress, Crackles, Rhonchi, Stridor, Wheezing Cardiovascular: positive: Regular Rhythm, Regular Rate, S1, S2. negative: Edema , JVD, Murmur Gastrointestinal/Abdominal: positive: Normal Bowel Sounds, Flat, Soft. negative : Tender, Organomegaly, Pulsatile Mass, Guarding Musculoskeletal: positive: Normal Inspection. negative: Decreased Range of Motion, Vertebral Tenderness Extremity: positive: Normal Capillary Refill, Normal Inspection, Normal Range of Motion. negative: Tender, Cyanosis Integumentary: positive: Normal Color, Dry, Warm. negative: Erythema, Rash, Bruising Neurologic: positive: windows vmware administrator II-XII NML intact, Fully Oriented, Alert, Normal Mood/ Affect, Normal Response, Motor Strength 5/5, Finger to Nose (normal). negative : EOM Palsy, Facial Droop, Numbness, Confused, Disoriented Heart Score/ECG Review #1 01/20/18 04:32 SR rate 73 with normal axis and intervals, no ischemic ST-T changes. ED Treatment Course - LABORATORY CBC & Chemistry Diagram: 01/20/18 02:50 01/20/18 02:50 - RADIOLOGY Radiology Studies Ordered: Category Date Time Status CERVICAL SPINE CT W/O CONTR [CT] Stat CT Scan 01/20/18 00:[address] WITHOUT CONTRAST [CT] Stat CT Scan 01/20/18 00:10 Ordered CHEST PA & LAT [RAD] Stat Radiology 01/20/18 00:17 Ordered Medical Decision Making - Medical Decision Making 01/20/18 00:41 Adult Pt p/w apparent seizure, right eyelid lac which is mild, neck stiffness, headache. Initial Vital Signs Temp Pulse Resp BP Pulse Ox 99.7 F H 87 18 130/92 97 01/19/18 23:02 01/19/18 23:02 01/19/18 23:02 01/19/18 23:02 01/19/18 23:02 Rectal temp: 99.8 Exam: As noted in Physical Exam section. DDX IBNLT: seizure (myoclonic, tonic-clonic/grand mal, atonic, absence/petit mal ) vs. syncope, meningitis/encephalitis, VS abnormalities (e.g. fever), structural (e.g. epilepsy, CVA/TIA), infectious (e.g. UTI, PNA, meningitis), trauma, toxic-metabolic (e.g. medications, medication withdrawal, street drugs, street drug withdrawal, EtOH, EtOH withdrawal, electrolytes, thyroid), brain lesion (e.g. tumor), stroke, HUS (with AMS, fever, poss seizure), idiopathic, psychiatric (e.g. pseudoseizure), etc. W/U ordered: CBCD CMP Dilantin level CXR Head CT TX ordered: IVF CXR: Nothing acute Head CT: Nothing acute C-spine CT: Nothing acute Laboratory Tests 01/20/18 01/20/18 01/20/18 02:50 02:50 02:50 WBC 11.0 H RBC 5.12 Hgb 14.2 Hct 42.4 MCV 82.8 MCH 27.7 MCHC 33.5 RDW 13.6 Plt Count 225 MPV 9.3 Absolute Neuts (auto) 7.8 Neutrophils % 70.7 Lymphocytes % 20.8 D Monocytes % 7.7 Eosinophils % 0.4 Basophils % 0.4 Nucleated RBC % 0 PT with INR 12.50 INR 1.11 H PTT (Actin FS) 31.5 Sodium 138 Potassium 3.6 Chloride 104 Carbon Dioxide 27 Anion Gap 7 L BUN 6 L Creatinine 1.0 Creat Clearance w eGFR > 60 Random Glucose 104 Calcium 9.5 Phosphorus 4.2 D Magnesium 2.4 Total Bilirubin 0.4 AST 18 ALT 29 Alkaline Phosphatase 86 Creatine Kinase Creatine Kinase Index CK-MB (CK-2) Troponin I Total Protein 7.2 Albumin 4.4 Phenytoin 01/20/18 01/20/18 02:50 02:50 WBC RBC Hgb Hct MCV MCH MCHC RDW Plt Count MPV Absolute Neuts (auto) Neutrophils % Lymphocytes % Monocytes % Eosinophils % Basophils % Nucleated RBC % PT with INR INR PTT (Actin FS) Sodium Potassium Chloride Carbon Dioxide Anion Gap BUN Creatinine Creat Clearance w eGFR Random Glucose Calcium Phosphorus Magnesium Total Bilirubin AST ALT Alkaline Phosphatase Creatine Kinase 233 Creatine Kinase Index 0.9 CK-MB (CK-2) 2.27 Troponin I < 0.02 Total Protein Albumin Phenytoin 6.1 L D Vital Signs Temperature 99.7 F H 01/19/18 23:02 Pulse Rate 87 01/19/18 23:02 Respiratory Rate 18 01/19/18 23:02 Blood Pressure 130/92 01/19/18 23:02 O2 Sat by Pulse Oximetry (%) 97 01/19/18 23:02 01/20/18 04:08 EKG: Reviewed; results as noted in ECG Review section. DISCHARGE 300 mg Dilantin PO given. Patient is counseled seriously to take his Dilantin and Lamictal as prescribed. He has an appointment to f/u with his neurologist in February. He is counseled to f/u sooner than that to adjust his meds as he does not like the side effects. The Pt has gotten significant relief of symptoms with ED medications. Workup is not concerning for emergency-level pathology at this time. The Pt is appropriate for discharge with close outpatient follow up. They are comfortable with this plan and will follow up with their PCP in 1-3 days. Specific return precautions are discussed and they will come back to the ER if necessary. *DC/Admit/Observation/Transfer Diagnosis at time of Disposition: Seizure Headache Qualifiers: Headache type: unspecified Headache chronicity pattern: acute headache Intractability: not intractable Qualified Code(s): R51 - Headache Eyelid laceration, right Qualifiers: Encounter type: initial encounter Qualified Code(s): S01.111A - Laceration without foreign body of right eyelid and periocular area, initial encounter - Discharge Dispostion Disposition: HOME Condition at time of disposition: Stable Decision to Admit order: No - Referrals Referrals: [facility] [place] [Provider Group] - Patient Instructions Printed Discharge Instructions: DI for Seizure Disorder -- Adult Additional Instructions: You were seen in the ER for a seizure. We did an exam, imaging studies, and an electrocardiogram, and we did not find any new concerning abnormalities. Your Dilantin level is low, and this is one reason you had a seizure. After our assessment, we do not believe you are having a medical emergency at this time, and we believe you are safe to go home. Please continue to take your seizure medications as prescribed because if you do not, you are at higher risk for having seizures which can put you in danger of serious accidents and other complications. Avoid triggers that may cause or worsen your seizures such as alcohol, drugs, dehydration, fasting, lack of sleep, or intensely stressful situations. Please follow up with your regular PCP doctor, neurologist, or the doctor who follows you for your seizure disorder, in 1-3 days. Call their clinic , tell them you were seen in the ER, and tell them you need a follow-up. If you have any new or worsening symptoms, please come back to the ER at any time (24 hours a day). If you are having severe or life threatening symptoms, or symptoms that make it unsafe to drive or have someone drive you, please call 911. - Post Discharge Activity
[2018-01-20] MEDS ORDERED: ACETAMINOPHEN 1000 MG/100 ML VIAL (NON FORMULARY) IVPB ONE (00:43)
[2018-01-20] MEDS ORDERED: SODIUM CHLORIDE 0.9% 500 ML INFUS.BAG IV ONE (00:43)
[2018-01-20] MEDS ORDERED: ACETAMINOPHEN INJECTION 100 ML IVPB ONE (02:39)
[2018-01-20 03:05] LABS: BASO % 0.4 % (0-2.0); EOS % 0.4 % (0-4.5); HEMATOCRIT 42.4 % (35.4-49); HEMOGLOBIN 14.2 GM/dL (11.7-16.9); LYMPH % 20.8 % (8-40); MCH 27.7 pg (25.7-33.7); MCHC 33.5 g/dl (32.0-35.9); MEAN CELL VOLUME 82.8 fl (80-96); MEAN PLT VOLUME 9.3 fl (7.5-11.1); MONO % 7.7 % (3.8-10.2); NEUT % 70.7 % (42.8-82.8); PLATELET COUNT 225 K/MM3 (134-434); RBC 5.12 M/mm3 (4.00-5.60); RDW 13.6 % (11.9-15.9)
[2018-01-20 03:25] LABS: INR 1.11 (0.83-1.09); PROTHROMBIN TIME (PATIENT) 12.5 SEC (9.7-13.0)
[2018-01-20 03:28] LABS: ACTIVATED PTT 31.5 SECONDS (25.2-36.5)
[2018-01-20 03:34] LABS: ALBUMIN 4.4 g/dl (3.4-5.0); ALK PHOS 86 U/L (45-117); ANION GAP 7 (8-16); BILIRUBIN,TOTAL 0.4 mg/dL (0.2-1.0); BLOOD UREA NITROGEN 6 mg/dL (7-18); CALCIUM 9.5 mg/dL (8.5-10.1); CHLORIDE 104 mmol/L (98-107); CO2 27 mmol/L (21-32); GLUCOSE,RANDOM 104 mg/dL (74-106); MAGNESIUM 2.4 mg/dL (1.8-2.4); PHOSPHOROUS 4.2 mg/dL (2.5-4.9); POTASSIUM 3.6 mmol/L (3.5-5.1); SGOT/AST 18 U/L (15-37); SGPT/ALT 29 U/L (12-78); SODIUM 138 mmol/L (136-145); TOT PROT 7.2 g/dl (6.4-8.2)
[2018-01-20] MEDS ORDERED: PHENYTOIN NA EXTENDED 100 MG CAPSULE (FP) PO ONE (04:02)
[2018-01-20 04:09] VITALS: BP 107/54; PULSE 73; TEMP 98
[2018-01-20 04:16] LABS: URINE APPEARANCE CLEAR; URINE BILIRUBIN NEGATIVE (<2.0 mg/dL); URINE COLOR YELLOW; URINE GLUCOSE (UA) NEGATIVE (NEGATIVE); URINE KETONE TRACE (NEGATIVE); URINE LEUK ESTERASE NEGATIVE (NEGATIVE); URINE NITRITE NEGATIVE (NEGATIVE); URINE PROTEIN NEGATIVE (NEGATIVE); URINE UROBILINOGEN NEGATIVE mg/dL (0.2-1.0)
[2018-01-20] MEDS ORDERED: PHENYTOIN NA EXTENDED 100 MG CAPSULE (FP) ONE (04:21)
--- NOTE | 2018-01-20 11:36 | EKG ---
Test Reason : Blood Pressure : / mmHG Vent. Rate : 073 BPM Atrial Rate : 073 BPM P-R Int : 172 ms QRS Dur : 094 ms QT Int : 388 ms P-R-T Axes : 072 057 033 degrees QTc Int : 427 ms NORMAL SINUS RHYTHM NORMAL ECG WHEN COMPARED WITH ECG OF 29-NOV-2017 17:26, NO SIGNIFICANT CHANGE WAS FOUND Confirmed by DONTE SIGALA MD ([id number]) on 01/20/2018 11:36:07 AM Referred By: Confirmed By:DONTE SIGALA MD
== END 2018-01-20 05:01 | disposition home or self-care (01) ==
LOC: JER 22:51
PROC: 3E033NZ Introduction of Analgesics, Hypnotics, Sedatives into Peripheral Vein, Percutaneous Approach (ICD-10-PCS; principal; 2018-01-19)
PROC: 3E0337Z Introduction of Electrolytic and Water Balance Substance into Peripheral Vein, Percutaneous Approach (ICD-10-PCS; 2018-01-19)
DX: G40.89 Other seizures (principal); R51 Headache; S01.111A Laceration without foreign body of right eyelid and periocular area, initial encounter; W18.39XA Other fall on same level, initial encounter; Y93.01 Activity, walking, marching and hiking; Y92.008 Other place in unspecified non-institutional (private) residence as the place of occurrence of the external cause
CPT/HCPCS: 36415; 70450-TC; 71046-TC-FY; 72125-TC; 80053; 80185; 81003; 82550; 82553; 83735; 84100; 84484; 85025; 85610; 85730; 93005; 93010; 99282-25; J0131

== ENCOUNTER 2018-06-09 16:26 | Emergency (ER) | payer OTHER ==
[2018-06-09 16:40] VITALS: TEMP 98.3; BMI 26.6
[2018-06-09] MEDS ORDERED: PHENYTOIN SODIUM 100 MG/2 ML VIAL IVPB ONE (17:05)
--- NOTE | 2018-06-09 17:11 | PDOC ---
History of Present Illness - History of Present Illness Initial Comments: 06/09/18 17:31 The patient is a 27 year old male with a past medical history of seizures who presents to the emergency department for evaluation s/p witnessed seizure. Patient reports bumping his head after having a seizure on the sidewalk this afternoon. Patient was BIBEMS after a bystander witnessed the episode. The patient denies chest pain, shortness of breath, cough, fevers, chills, vomiting, diarrhea, dysuria, and urinary frequency. Allergies: No known allergies. Social History: No reported alcohol or cigarette use. Reported marijuana use. Surgical History: Hernia, appendectomy <Maik Jonas - Last Filed: 06/09/18 17:32> - General History Source: Patient Exam Limitations: No Limitations <Edmar Bello - Last Filed: 06/09/18 18:47> - General Chief Complaint: Seizure Stated Complaint: Seizure Time Seen by Provider: 06/09/18 16:53 Past History <Maik Jonas - Last Filed: 06/09/18 17:32> - Past Medical History CVA: No COPD: No Seizures: Yes - Surgical History Abdominal Surgery: Yes (hernia) Appendectomy: Yes - Immunization History Immunization Up to Date: Yes - Suicide/Smoking/Psychosocial Hx Smoking Status: No Smoking History: Never smoked Have you smoked in the past 12 months: No Number of Cigarettes Smoked Daily: 0 Information on smoking cessation initiated: No Hx Alcohol Use: No Drug/Substance Use Hx: Yes Substance Use Type: Marijuana Hx Substance Use Treatment: No <Edmar Bello - Last Filed: 06/09/18 18:47> - Past Medical History Allergies/Adverse Reactions: Allergies Allergy/AdvReac Type Severity Reaction Status Date / Time No Known Allergies Allergy Verified 06/09/18 16:40 Home Medications: Ambulatory Orders Phenytoin Na Extended [Dilantin -] 200 mg PO BID #120 capsule 09/29/17 Lamotrigine [Lamictal -] 75 mg PO BID 11/29/17 Lamotrigine [Lamictal] 150 mg PO BID #60 tablet 06/09/18 Phenytoin Na Extended [Dilantin -] 100 mg PO BID #60 capsule 06/09/18 Review of Systems - Review of Systems Able to Perform ROS?: Yes Comments:: GENERAL/CONSTITUTIONAL: No fever or chills. No weakness. HEAD, EYES, EARS, NOSE AND THROAT: No change in vision. No ear pain or discharge. No sore throat. CARDIOVASCULAR: No chest pain or shortness of breath. RESPIRATORY: No cough, wheezing, or hemoptysis. GASTROINTESTINAL: No nausea, vomiting, diarrhea or constipation. GENITOURINARY: No dysuria, frequency, or change in urination. MUSCULOSKELETAL: (+)mild head pain. SKIN: No rash NEUROLOGIC: No headache, vertigo, loss of consciousness, or change in strength/ sensation. ENDOCRINE: No increased thirst. No abnormal weight change. HEMATOLOGIC/LYMPHATIC: No anemia, easy bleeding, or history of blood clots. ALLERGIC/IMMUNOLOGIC: No hives or skin allergy. <Maik Jonas - Last Filed: 06/09/18 17:32> *Physical Exam - Vital Signs Last Vital Signs Temp Pulse Resp BP Pulse Ox 98.3 F 92 H 18 110/61 100 06/09/18 16:37 06/09/18 16:37 06/09/18 16:37 06/09/18 16:37 06/09/18 16:37 - Physical Exam Comments: GENERAL: Awake, alert, and fully oriented, in no acute distress HEAD: No signs of trauma EYES: PERRLA, EOMI, sclera anicteric, conjunctiva clear NECK: Normal ROM, supple. LUNGS: Breath sounds equal, clear to auscultation bilaterally. No wheezes, and no crackles HEART: Regular rate and rhythm, normal S1 and S2, no murmurs, rubs or gallops ABDOMEN: Soft, nontender, normoactive bowel sounds. No guarding, no rebound. No masses EXTREMITIES: Normal range of motion, no edema. No clubbing or cyanosis. No cords, erythema, or tenderness NEUROLOGICAL: Cranial nerves II through XII grossly intact. Normal speech, normal gait SKIN: Warm, Dry, normal turgor, no rashes or lesions noted. <Maik Jonas - Last Filed: 06/09/18 17:32> - Vital Signs Last Vital Signs Temp Pulse Resp BP Pulse Ox 98.3 F 92 H 18 110/61 100 06/09/18 16:37 06/09/18 16:37 06/09/18 16:37 06/09/18 16:37 06/09/18 16:37 <Park,Edmar - Last Filed: 06/09/18 18:47> Moderate Sedation - Procedure Monitoring Vital Signs: Procedure Monitoring Vital Signs Temperature 98.3 F 06/09/18 16:37 Pulse Rate 92 H 06/09/18 16:37 Respiratory Rate 18 06/09/18 16:37 Blood Pressure 110/61 06/09/18 16:37 O2 Sat by Pulse Oximetry (%) 100 06/09/18 16:37 <Maik Jonas - Last Filed: 06/09/18 17:32> - Procedure Monitoring Vital Signs: Procedure Monitoring Vital Signs Temperature 98.3 F 06/09/18 16:37 Pulse Rate 92 H 06/09/18 16:37 Respiratory Rate 18 06/09/18 16:37 Blood Pressure 110/61 06/09/18 16:37 O2 Sat by Pulse Oximetry (%) 100 06/09/18 16:37 <Edmar Bello - Last Filed: 06/09/18 18:47> ED Treatment Course - LABORATORY CBC & Chemistry Diagram: 06/09/18 17:12 06/09/18 17:12 - Medications Given in the ED: ED Medications Discontinued Medications Generic Name Dose Route Start Last Admin Trade Name Freq PRN Reason Stop Dose Admin Phenytoin Sodium 1,000 mg 06/09/18 17:05 06/09/18 17:28 Dilantin Injection - IVPB 06/09/18 17:06 1,000 mg ONCE ONE Administration <Maik Jonas - Last Filed: 06/09/18 17:32> - LABORATORY CBC & Chemistry Diagram: 06/09/18 17:12 06/09/18 17:12 <Edmar Bello - Last Filed: 06/09/18 18:47> Medical Decision Making - Medical Decision Making 06/09/18 17:06 A portion of this note was written by my scribe, under my supervision. Vital Signs Temp Pulse Resp BP Pulse Ox 98.3 F 92 H 18 110/61 100 06/09/18 16:37 06/09/18 16:37 06/09/18 16:37 06/09/18 16:37 06/09/18 16:37 27 year old male c/ hx of epilepsy presents with one brief episode of grand mal seizure. The patient reports that he has not been adherent to his lamictal and phenytoin. He states that he felt an "aura" this morning but denies other symptoms including fevers, chills, cough, vomiting, diarrhea, dysuria, urinary frequency , chest pain, shortness of breath. States that he forgets to take his medications. Today, he was walking on the side walk when he had a brief grand mal seizure that resolved on its own. Bystander called EMS. Pt reports no symptoms. Reports bumping his head but denies headache, neuro deficit, nausea, vomiting. The patient is neurologically intact. I suspect seizure in setting of nonadherence with his epilepsy disorder. Will infuse IV phenytoin. Check levels. Observe. Check labs. If workup is negative, and patient has no symptoms, can d/c home with family. 06/09/18 18:27 CBC, BMP 06/09/18 17:12 06/09/18 17:12 CMP Sodium 136 mmol/L (136-145) 06/09/18 17:12 Potassium 4.4 mmol/L (3.5-5.1) 06/09/18 17:12 Chloride 102 mmol/L (98-107) 06/09/18 17:12 Carbon Dioxide 27 mmol/L (21-32) 06/09/18 17:12 Anion Gap 7 MMOL/L (8-16) L 06/09/18 17:12 BUN 9 mg/dL (7-18) 06/09/18 17:12 Creatinine 1.2 mg/dL (0.55-1.3) 06/09/18 17:12 Creat Clearance w eGFR > 60 (>60) 06/09/18 17:12 Random Glucose 112 mg/dL (74-106) H 06/09/18 17:12 Calcium 9.3 mg/dL (8.5-10.1) 06/09/18 17:12 Total Bilirubin 0.3 mg/dL (0.2-1) 06/09/18 17:12 AST 19 U/L (15-37) 06/09/18 17:12 ALT 33 U/L (13-61) 06/09/18 17:12 Alkaline Phosphatase 86 U/L (45-117) 06/09/18 17:12 Total Protein 7.5 g/dl (6.4-8.2) 06/09/18 17:12 Albumin 4.3 g/dl (3.4-5.0) 06/09/18 17:12 Phenytoin level subtherapeutic. Pt received IV phenytoin. Pt states he takes 200 mg phenytoin BID and 150 mg lamictal PO BID. Will write prescriptions for the patient. Pt will follow up his doctor. Will be taken home by his doctors. I discussed the physical exam findings, ancillary test results and final diagnoses with the patient. I answered all of the patient's questions. The patient was satisfied with the care received and felt comfortable with the discharge plan and treatment plan. The patient will call their primary care physician within 24 hours to arrange follow-up and will return to the Emergency Department with any new, persistant or worsening symptoms. <Edmar Bello - Last Filed: 06/09/18 18:47> *DC/Admit/Observation/Transfer - Attestations Scribe Attestion: Documentation prepared by Maik Jonas, acting as medical billing service for Edmar Bello MD. <Maik Jonas - Last Filed: 06/09/18 17:32> - Discharge Dispostion Decision to Admit order: No <Edmar Bello - Last Filed: 06/09/18 18:47> Diagnosis at time of Disposition: Seizure - Discharge Dispostion Disposition: HOME Condition at time of disposition: Good - Prescriptions Prescriptions: Lamotrigine [Lamictal] 150 mg PO BID #60 tablet Phenytoin Na Extended [Dilantin -] 100 mg PO BID #60 capsule - Patient Instructions Printed Discharge Instructions: DI for Seizure Disorder -- Adult Additional Instructions: Please take your seizure medications as prescribed. Call to schedule an appointment with a neurologist.
[2018-06-09 17:27] LABS: BASO % 0.4 % (0-2.0); EOS % 0.4 % (0-4.5); HEMATOCRIT 42.1 % (35.4-49); HEMOGLOBIN 14.6 GM/dL (11.7-16.9); LYMPH % 10.7 % (8-40); MCH 28.3 pg (25.7-33.7); MCHC 34.7 g/dl (32.0-35.9); MEAN CELL VOLUME 81.7 fl (80-96); MEAN PLT VOLUME 9.4 fl (7.5-11.1); MONO % 6.7 % (3.8-10.2); NEUT % 81.8 % (42.8-82.8); PLATELET COUNT 257 K/MM3 (134-434); RBC 5.16 M/mm3 (4.00-5.60); RDW 13.5 % (11.9-15.9); WHITE BLOOD COUNT 9.2 K/mm3 (4.0-10.0)
[2018-06-09 17:56] LABS: ALBUMIN 4.3 g/dl (3.4-5.0); ALK PHOS 86 U/L (45-117); ANION GAP 7 MMOL/L (8-16); BILIRUBIN,TOTAL 0.3 mg/dL (0.2-1); BLOOD UREA NITROGEN 9 mg/dL (7-18); CALCIUM 9.3 mg/dL (8.5-10.1); CHLORIDE 102 mmol/L (98-107); CO2 27 mmol/L (21-32); CREATININE 1.2 mg/dL (0.55-1.3); GLUCOSE,RANDOM 112 mg/dL (74-106); POTASSIUM 4.4 mmol/L (3.5-5.1); SGOT/AST 19 U/L (15-37); SGPT/ALT 33 U/L (13-61); SODIUM 136 mmol/L (136-145); TOT PROT 7.5 g/dl (6.4-8.2)
[2018-06-09] MEDS ORDERED: lamoTRIgine 100 MG TABLET (FP) PO ONE (18:27)
[2018-06-09] MEDS ORDERED: lamoTRIgine 25 MG TABLET ONE (18:34)
[2018-06-09 18:57] VITALS: BP 115/69; PULSE 80
== END 2018-06-09 18:58 | disposition home or self-care (01) ==
LOC: JER 16:26
PROC: 3E033GC Introduction of Other Therapeutic Substance into Peripheral Vein, Percutaneous Approach (ICD-10-PCS; principal; 2018-06-09)
DX: G40.909 Epilepsy, unspecified, not intractable, without status epilepticus (principal); S09.8XXA Other specified injuries of head, initial encounter; W18.09XA Striking against other object with subsequent fall, initial encounter; Y93.89 Activity, other specified; Y92.480 Sidewalk as the place of occurrence of the external cause; Y99.8 Other external cause status
CPT/HCPCS: 36415; 80053; 80175; 80185; 85025; 99283-25

== ENCOUNTER 2018-07-29 21:52 | Emergency (ER) | payer OTHER ==
--- NOTE | 2018-07-29 22:05 | PDOC ---
*Physical Exam - Vital Signs Last Vital Signs Temp Pulse Resp BP Pulse Ox 98.8 F 119 H 18 102/60 96 07/29/18 21:58 07/29/18 21:58 07/29/18 21:58 07/29/18 21:58 07/29/18 21:58 ED Treatment Course - LABORATORY CBC & Chemistry Diagram: 07/29/18 22:30 07/29/18 22:30 Medical Decision Making - Medical Decision Making 07/29/18 22:05 Patient seen by the advanced practice provider under my direct supervision. Ancillary testing reviewed as necessary. I agree with plan as outlined by the advanced practice provider. *DC/Admit/Observation/Transfer Diagnosis at time of Disposition: Seizure - Referrals - Patient Instructions - Post Discharge Activity
[2018-07-29 22:07] VITALS: BP 102/60; PULSE 119; TEMP 98.8; BMI 25.7
--- NOTE | 2018-07-29 22:41 | PDOC ---
History of Present Illness - General Chief Complaint: Seizure Stated Complaint: SEIZURE Time Seen by Provider: 07/29/18 22:04 History Source: Patient, Old Records Exam Limitations: No Limitations - History of Present Illness Initial Comments: 07/29/18 22:37 HISTORY OF PRESENT ILLNESS: 27-year-old male with past medical history of seizure disorder on Dilantin and Lamictal presents emergency department for evaluation of seizure. Patient reports intermittent compliance with his medication believes she has not taken his Lamictal in the past 3 days. Patient is unsure about when his last Dilantin was. Patient was hanging out with some friends when they noted patient had a seizure lasting approximately 30-45 seconds. Patient's friends called 911 immediately upon the seizure. No recent travel or sick contacts. PAST MEDICAL HISTORY: Seizure d/o SURGICAL HISTORY: Denies ALLERGIES: No known drug allergies REVIEW OF SYSTEMS General/Constitutional: Denies fever or chills. Denies weakness, weight change. HEENT: Denies change in vision. Denies ear pain or discharge. Denies sore throat. Cardiovascular: Denies chest pain or shortness of breath. Respiratory: Denies cough, wheezing, or hemoptysis. Gastrointestinal: Denies nausea, vomiting, diarrhea or constipation. Denies rectal bleeding. Genitourinary: Denies dysuria, frequency, or change in urination. Musculoskeletal: Denies joint or muscle swelling or pain. Denies neck or back pain. Skin and breasts: Denies rash or easy bruising. Neurologic:see HPI Psychiatric: Denies depression or anxiety. Endocrine: Denies increased thirst. Denies abnormal weight change. Hematologic/Lymphatic: Denies anemia, easy bleeding, or history of blood clots. Allergic/Immunologic: Denies hives or skin allergy. Denies latex allergy. PHYSICAL EXAM General Appearance: Well-appearing, appropriately dressed. No apparent distress , no intoxication. HEENT: EOMI, PERRLA, normal ENT inspection, normal voice, TMs normal, pharynx normal. No conjunctival pallor. No photophobia, scleral icterus. No oral trauma noted. Neck: Supple. Trachea midline. No tenderness, rigidity, carotid bruit, stridor , lymphadenopathy, or thyromegaly. Respiratory/Chest: Lungs CTAB. No shortness of breath, chest tenderness, respiratory distress, accessory muscle use. No crackles, rales, rhonchi, stridor , wheezing, dullness Cardiovascular: RRR. S1, S2. No JVD, murmur, bradycardia, tachycardia. Vascular Pulses: Dorsalis-Pedis (R): 2+, Dorsalis-Pedis (L): 2+ Gastrointestinal/Abdominal: Normal bowel sounds. Abdomen soft, non-distended. No tenderness or rebound tenderness. No organomegaly, pulsatile mass, guarding, hernia, hepatomegaly, splenomegaly. Lymphatic: No adenopathy, tenderness. Musculoskeletal/Extremities: Normal inspection. FROM of all extremities, normal capillary refill. Pelvis Stable. No CVA tenderness. No tenderness to extremities, pedal edema, swelling, erythema or deformity. Integumentary: Appropriate color, dry, warm. No cyanosis, erythema, jaundice or rash Neurologic: scraper tender II-XII intact. Fully oriented, alert. Appropriate mood/affect. Motor strength 5/5. No appreciable EOM palsy, facial droop or sensory deficit. Past History - Past Medical History Allergies/Adverse Reactions: Allergies Allergy/AdvReac Type Severity Reaction Status Date / Time No Known Allergies Allergy Verified 07/29/18 21:58 Home Medications: Ambulatory Orders Lamotrigine [Lamictal -] 75 mg PO BID 11/29/17 Phenytoin Na Extended [Dilantin -] 100 mg PO BID #60 capsule 06/09/18 Lamotrigine [Lamictal] 150 mg PO BID #60 tablet 07/29/18 Phenytoin Na Extended [Dilantin -] 200 mg PO BID #120 capsule 07/29/18 CVA: No COPD: No Seizures: Yes - Surgical History Abdominal Surgery: Yes (hernia) Appendectomy: Yes - Immunization History Immunization Up to Date: Yes - Suicide/Smoking/Psychosocial Hx Smoking Status: No Smoking History: Never smoked Have you smoked in the past 12 months: No Number of Cigarettes Smoked Daily: 0 Hx Alcohol Use: No Drug/Substance Use Hx: Yes ([facility]) Substance Use Type: Marijuana Hx Substance Use Treatment: No *Physical Exam - Vital Signs Last Vital Signs Temp Pulse Resp BP Pulse Ox 98.8 F 119 H 18 102/60 96 07/29/18 21:58 07/29/18 21:58 07/29/18 21:58 07/29/18 21:58 07/29/18 21:58 Moderate Sedation - Procedure Monitoring Vital Signs: Procedure Monitoring Vital Signs Temperature 98.8 F 07/29/18 21:58 Pulse Rate 119 H 07/29/18 21:58 Respiratory Rate 18 07/29/18 21:58 Blood Pressure 102/60 07/29/18 21:58 O2 Sat by Pulse Oximetry (%) 96 07/29/18 21:58 ED Treatment Course - LABORATORY CBC & Chemistry Diagram: 07/29/18 22:30 07/29/18 22:30 Medical Decision Making - Medical Decision Making 07/29/18 22:39 A/P: 27-year-old male with seizure Patient's neurologic exam is within normal limits. Seizure most likely insetting of med noncompliance given the history. Differential diagnosis includes but is not limited to med noncompliance, infectious process, electrolyte imbalance Labs including Lamictal and Dilantin level Urinalysis EKG Load medications Reassess 07/29/18 23:22 Dilantin level is 3.9. Labs unremarkable otherwise. Dilantin 1 g IV now. Discharge home with prescriptions for his antiseizure medication. 07/29/18 23:53 EKG is sinus rhythm with rate of 72. Normal intervals noted. No ischemic changes present. *DC/Admit/Observation/Transfer Diagnosis at time of Disposition: Seizure - Discharge Dispostion Disposition: HOME Condition at time of disposition: Fair Decision to Admit order: No - Prescriptions Prescriptions: Lamotrigine [Lamictal] 150 mg PO BID #60 tablet Phenytoin Na Extended [Dilantin -] 200 mg PO BID #120 capsule - Referrals Referrals: Josiah Saunders MD [Staff Physician] - - Patient Instructions Additional Instructions: You have been given a loading dose of Dilantin tonight through the veins. Start your prescription tomorrow evening. You may start your Lamictal tomorrow morning. You need to take your medicine the way you eat food or drink water. I gave you the number for Dr. Saunders who wished her neurologist. Contact his office for evaluation within the next 10 days. Return to the emergency department for any new or worsening symptoms. - Post Discharge Activity
[2018-07-29 22:43] LABS: BASO % 0.4 % (0-2.0); EOS % 1.3 % (0-4.5); HEMATOCRIT 39.9 % (35.4-49); HEMOGLOBIN 13.7 GM/dL (11.7-16.9); LYMPH % 18.2 % (8-40); MCH 28.7 pg (25.7-33.7); MCHC 34.4 g/dl (32.0-35.9); MEAN CELL VOLUME 83.5 fl (80-96); MEAN PLT VOLUME 8.4 fl (7.5-11.1); MONO % 6.9 % (3.8-10.2); NEUT % 73.2 % (42.8-82.8); PLATELET COUNT 229 K/MM3 (134-434); RBC 4.77 M/mm3 (4.00-5.60); WHITE BLOOD COUNT 6.8 K/mm3 (4.0-10.0)
[2018-07-29] MEDS ORDERED: PHENYTOIN SODIUM 100 MG/2 ML VIAL IVPB ONE (23:19)
[2018-07-29 23:23] LABS: URINE APPEARANCE CLOUDY; URINE BILIRUBIN NEGATIVE (<2.0 mg/dL); URINE COLOR LTYELLOW; URINE GLUCOSE (UA) NEGATIVE (NEGATIVE); URINE KETONE NEGATIVE (NEGATIVE); URINE LEUK ESTERASE NEGATIVE (NEGATIVE); URINE NITRITE NEGATIVE (NEGATIVE); URINE PROTEIN NEGATIVE (NEGATIVE); URINE UROBILINOGEN NEGATIVE mg/dL (0.2-1.0)
[2018-07-29 23:30] LABS: ALBUMIN 4.1 g/dl (3.4-5.0); ALK PHOS 87 U/L (45-117); ANION GAP 4 MMOL/L (8-16); BILIRUBIN,TOTAL 0.3 mg/dL (0.2-1); BLOOD UREA NITROGEN 9 mg/dL (7-18); CALCIUM 9.4 mg/dL (8.5-10.1); CHLORIDE 104 mmol/L (98-107); CO2 29 mmol/L (21-32); CREATININE 1.1 mg/dL (0.55-1.3); GLUCOSE,RANDOM 135 mg/dL (74-106); SGOT/AST 14 U/L (15-37); SGPT/ALT 21 U/L (13-61); SODIUM 136 mmol/L (136-145); TOT PROT 7.3 g/dl (6.4-8.2)
--- NOTE | 2018-07-30 09:52 | EKG ---
Test Reason : Blood Pressure : / mmHG Vent. Rate : 072 BPM Atrial Rate : 072 BPM P-R Int : 164 ms QRS Dur : 096 ms QT Int : 368 ms P-R-T Axes : 062 054 039 degrees QTc Int : 402 ms NORMAL SINUS RHYTHM NORMAL ECG WHEN COMPARED WITH ECG OF 20-JAN-2018 04:33, NO SIGNIFICANT CHANGE WAS FOUND Confirmed by NASIR ANTHONY MD ([id number]) on 07/30/2018 9:51:34 AM Referred By: Confirmed By:NASIR ANTHONY MD
== END 2018-07-30 00:42 | disposition home or self-care (01) ==
LOC: JER 21:52
PROC: 3E033GC Introduction of Other Therapeutic Substance into Peripheral Vein, Percutaneous Approach (ICD-10-PCS; principal; 2018-07-29)
DX: G40.909 Epilepsy, unspecified, not intractable, without status epilepticus (principal)
CPT/HCPCS: 36415; 80053; 80175; 80185; 81003; 85025; 93005; 93010; 96374; 99283-25

== ENCOUNTER 2018-11-29 09:23 | Emergency (ER) | payer OTHER | END 2018-11-29 12:15 | disposition home or self-care (01) | LOC: JERFT 09:23 ==

== ENCOUNTER 2019-06-28 19:53 | Emergency (ER) | payer OTHER ==
[2019-06-28 20:06] VITALS: TEMP 99.5; BMI 23.8
--- NOTE | 2019-06-28 20:41 | PDOC ---
History of Present Illness - General Chief Complaint: Seizure Stated Complaint: SEIZURE Time Seen by Provider: 06/28/19 20:15 Past History - Past Medical History Allergies/Adverse Reactions: Allergies Allergy/AdvReac Type Severity Reaction Status Date / Time No Known Allergies Allergy Verified 11/29/18 10:08 Home Medications: Ambulatory Orders Lamotrigine [Lamictal] 150 mg PO BID #60 tablet 07/29/18 Phenytoin Na Extended [Dilantin -] 200 mg PO BID #120 capsule 07/29/18 CVA: No COPD: No Seizures: Yes - Surgical History Abdominal Surgery: Yes (hernia) Appendectomy: Yes - Immunization History Immunization Up to Date: Yes - Psycho Social/Smoking Cessation Hx Smoking Status: No Smoking History: Never smoked Have you smoked in the past 12 months: No Number of Cigarettes Smoked Daily: 0 Hx Alcohol Use: No Drug/Substance Use Hx: Yes Substance Use Type: Marijuana Hx Substance Use Treatment: No *Physical Exam - Vital Signs Last Vital Signs Temp Pulse Resp BP Pulse Ox 99.5 F 102 H 19 104/68 86 L 06/28/19 19:55 06/28/19 19:55 06/28/19 19:55 06/28/19 19:55 06/28/19 19:55 ED Treatment Course - LABORATORY CBC & Chemistry Diagram: 06/28/19 21:00 06/28/19 20:59 Medical Decision Making - Medical Decision Making 06/28/19 20:36 28M PMH Seizures (on lamotrigine and phenytoin) BIBEMS after witnessed (by girlfriend) seizure at approximately 7:45pm. Pt was walking on sidewalk and felt odd immediately before onset of seizure. Girlfriend states pt became confused and started to have purposeless movements before starting to shake. GF caught pt as he fell and laid on side. Endorses foaming at the mouth but denies tongue biting and loss of continence. Pt responsive at time of exam - states h/ o medication non-compliance, does not remember neurologist. Endorsing pleuritic chest pain and shortness of breath. Denies recent f/c, cough, sore throat, runny nose, n/v/d, abd pain. Denies dysuria. Denies personal or family hx of VTE , no recent surgeries, travel, or hemoptysis. NKDA Endorses xanax, percocet, and marijuana; last use of xanax was 06/22/18. Denies etoh, CONSTITUTIONAL: Denies F / C HEENT: Denies headache RESP: Endorses SOB. Denies cough CARD: Endorses pleuritic chest pain, palpitations GI: Denies N / V / D, abdominal pain, bloody stool, inability to tolerate PO : Denies dysuria, hematuria, frequency SKIN: Denies rashes NEURO: Denies numbness, tingling, weakness MSK: Denies muscle aches VS: SAO2 on RA 98% GEN: Well appearing, NAD, comfortable. AAOx3. HEENT: NC/AT, CN II-XII grossly intact, EOMI, PERRL. No facial asymmetry. Normal voice. Supple neck w/ FROM. CV: S1/S2, tachycardic no m/r/g LUNG: CTAB, no wheezes, crackles, rales, rhonchi. GI: Soft, ndnt, +BS, no guarding, no rebound EXTREMITIES: No LE edema. No TTP of calves. No obvious deformities of all extremities. SKIN: Warm, dry, no rashes appreciated. PSYCH: Normal mood and affect. NEURO: Moving all extremities well. 5/5 UE and LE strength b/l. symmetric sensation. 28M PMH Seizures w/ medication noncompliance BIBEMS for witnessed seizure. Was post-ictal on triage but coming back to baseline at time of exam. Neurologically intact exam. - CBC, CMP, AED levels - EKG, CXR - Give AEDs - reassess breathing 06/28/19 21:15 pt is back to baseline with is his breathing 06/28/19 21:51 no acute pathology on CXR per ED team read labs reviewed reassuring discussed at length with pt importance of taking AEDs and not taking street drugs. He is not a regular xanax user and advised to stop taking that. Pt expresses desire to change his ways. BP stable, SaO2 on RA remains 97-100%, HR 70s DC w/ neuro f/u Discharge - Discharge Information Problems reviewed: Yes Clinical Impression/Diagnosis: Seizure Condition: Stable Disposition: HOME - Admission No - Follow up/Referral Referrals: Josiah Saunders MD [Staff Physician] - [facility] [place] [facility] [place] [facility] [Provider Group] - Patient Discharge Instructions Patient Printed Discharge Instructions: DI for Seizure Disorder -- Adult Additional Instructions: Follow up with your Primary Care Doctor in the next 2 days. Follow up with your Neurologist in the next [address] DRUGS LIKE XANAX AND PERCOCET. TAKE YOUR SEIZURE MEDICATIONS PRESCRIBED. Return to the nearest Emergency Department if you experience: - further seizures - numbness, tingling, weakness - chest pain, shortness of breath - Post Discharge Activity
[2019-06-28] MEDS ORDERED: lamoTRIgine 25 MG TABLET PO ONE (21:03)
[2019-06-28] MEDS ORDERED: PHENYTOIN 50 MG TAB.CHEW PO ONE (21:03)
[2019-06-28] MEDS ORDERED: lamoTRIgine 25 MG TABLET ONE (21:09)
[2019-06-28 21:14] LABS: BASO % 0.6 % (0-2.0); EOS % 0.3 % (0-4.5); HEMATOCRIT 40.2 % (35.4-49); HEMOGLOBIN 13.5 GM/dL (11.7-16.9); LYMPH % 22.5 % (8-40); MCH 27.4 pg (25.7-33.7); MCHC 33.4 g/dl (32.0-35.9); MEAN CELL VOLUME 82.1 fl (80-96); MEAN PLT VOLUME 9.4 fl (7.5-11.1); MONO % 7.4 % (3.8-10.2); NEUT % 69.2 % (42.8-82.8); PLATELET COUNT 248 K/MM3 (134-434); RDW 13.2 % (11.9-15.9); WHITE BLOOD COUNT 6.3 K/mm3 (4.0-10.0)
[2019-06-28 21:35] LABS: ALK PHOS 72 U/L (45-117); ANION GAP 10 MMOL/L (8-16); BILIRUBIN,TOTAL 0.3 mg/dL (0.2-1); BLOOD UREA NITROGEN 8.2 mg/dL (7-18); CALCIUM 9.5 mg/dL (8.5-10.1); CHLORIDE 105 mmol/L (98-107); CO2 23 mmol/L (21-32); CREATININE 1.2 mg/dL (0.55-1.3); GLUCOSE,RANDOM 118 mg/dL (74-106); POTASSIUM 4.1 mmol/L (3.5-5.1); SGOT/AST 15 U/L (15-37); SGPT/ALT 23 U/L (13-61); SODIUM 138 mmol/L (136-145); TOT PROT 7.2 g/dl (6.4-8.2)
--- NOTE | 2019-06-28 21:58 | PDOC ---
Documentation entered by Zully Massey SCRIBE, acting as scribe for Radha Jones MD. Radha Jones MD: This documentation has been prepared by the [place] Sammi, SCRIBE, under my direction and personally reviewed by me in its entirety. I confirm that the documentation accurately reflects all work, treatment, procedures, and medical decision making performed by me. Attending Attestation - Resident Resident Name: Nicola Zambrano - ED Attending Attestation I have performed the following: I have examined & evaluated the patient, The case was reviewed & discussed with the resident, I agree w/resident's findings & plan, Exceptions are as noted - HPI HPI: 06/28/19 21:20 28M PMH Seizures (on lamotrigine and phenytoin) BIBEMS after witnessed (by girlfriend) seizure at approximately 7:45pm. Pt was walking on sidewalk and felt odd immediately before onset of seizure. Girlfriend states pt became confused and started to have purposeless movements before starting to shake. GF caught pt as he fell and laid on side. Endorses foaming at the mouth but denies tongue biting and loss of continence. Pt responsive at time of exam - states h/ o medication non-compliance, does not remember neurologist. Endorsing pleuritic chest pain and shortness of breath. Denies recent f/c, cough, sore throat, runny nose, n/v/d, abd pain. Denies dysuria. Denies personal or family hx of VTE , no recent surgeries, travel, or hemoptysis. The patient is a 28 year old male, with PMH of seizures(non-compliant with medications), who was BIBA to the ED for evaluation s/p witness seizure around 7 :45 tonight. Girlfriend, at bedside, reports the patient was confused and began to tremor, and proceeded to catch the patient as he fell. She reports the patient was foaming at the mouth. Patient is currently at baseline. Denies headache and dizziness. Denies fever, chills, nausea, vomiting, diarrhea and constipation. Denies dysuria, frequency, urgency and hematuria. - Physicial Exam PE: 06/28/19 21:5 Thin alert conversant 28-year-old male with history of epilepsy Had no scalp hematomas, no lacerations, no facial trauma Neck no midline cervical tenderness Lungs are clear to auscultation bilaterally CVS regular rate rhythm S1-S2 Abdomen was flat, nontender Extremities full range of motion, no deformities Skin no abrasions Neuro alert and oriented x3, motor strength 5 out of 5 bilaterally - Medical Decision Making 06/28/19 21:58 28-year-old male with a history of epilepsy who is noncompliant with his Dilantin and Lamictal His neurologist is Dr. Medina Reviewed his prior neurology consult July 2017 patient is still using Xanax that he buys on the street, still noncompliant with his seizure medications Patient was given Dilantin and Lamictal His CBC and chemistries are essentially unremarkable Discussed with the patient the importance of compliance with his seizure medications and advised this pt not to buy xanax off the street Patient had a witnessed seizure and his girlfriend lowered him to the ground and held him. He did not any time injure his head pt initially said he had some pleuretic chest pain upon arrival but this resolved he is now 99% pulse ox on room air 06/28/19 22:03
[2019-06-28 22:11] VITALS: BP 113/70; PULSE 78
--- NOTE | 2019-06-29 09:42 | EKG ---
Test Reason : Blood Pressure : / mmHG Vent. Rate : 075 BPM Atrial Rate : 075 BPM P-R Int : 162 ms QRS Dur : 092 ms QT Int : 376 ms P-R-T Axes : 063 047 024 degrees QTc Int : 419 ms NORMAL SINUS RHYTHM NORMAL ECG WHEN COMPARED WITH ECG OF 29-JUL-2018 23:52, NO SIGNIFICANT CHANGE WAS FOUND Confirmed by DONTE SIGALA MD ([id number]) on 06/29/2019 9:42:11 AM Referred By: Confirmed By:DONTE SIGALA MD
== END 2019-06-28 22:25 | disposition home or self-care (01) ==
LOC: JER 19:53
DX: G40.909 Epilepsy, unspecified, not intractable, without status epilepticus (principal); Z91.14 Patient's other noncompliance with medication regimen; F13.10 Sedative, hypnotic or anxiolytic abuse, uncomplicated
CPT/HCPCS: 36415; 71045-TC-FY; 80053; 80175; 80185; 82550; 84484; 85025; 93005; 93010; 99283-25

== ENCOUNTER 2019-06-29 07:15 | Emergency (ER) | payer OTHER ==
[2019-06-29 07:28] VITALS: TEMP 99.3; BMI 25.8
--- NOTE | 2019-06-29 08:17 | PDOC ---
History of Present Illness - General Chief Complaint: Seizure Stated Complaint: SEIZURE Time Seen by Provider: 06/29/19 07:57 - History of Present Illness Initial Comments: 06/29/19 08:16 28 years old with past medical history significant for epilepsy noncompliant with his Dilantin and Lamictal his neurologist is Dr. Medina he presented to the emergency department yesterday with a seizure by Xanax off the street noncompliant with his seizure medication was given Dilantin and Lamictal in the emergency department last used Xanax/Percocet yesterday his labs are unremarkable He was restarted on his Dilantin and Lamictal he went home last night had a brief seizure again at 3 AM Currently feels a little foggy otherwise asymptomatic Past History - Past Medical History Allergies/Adverse Reactions: Allergies Allergy/AdvReac Type Severity Reaction Status Date / Time No Known Allergies Allergy Verified 11/29/18 10:08 Home Medications: Ambulatory Orders Lamotrigine [Lamictal] 150 mg PO BID #60 tablet 07/29/18 Phenytoin Na Extended [Dilantin -] 200 mg PO BID #120 capsule 07/29/18 CVA: No COPD: No Seizures: Yes (EPILEPSY) - Surgical History Abdominal Surgery: Yes (hernia) Appendectomy: Yes - Immunization History Immunization Up to Date: Yes - Psycho Social/Smoking Cessation Hx Smoking Status: No Smoking History: Never smoked Have you smoked in the past 12 months: No Number of Cigarettes Smoked Daily: 0 Hx Alcohol Use: No Drug/Substance Use Hx: Yes (FREQUENT PERCOCET/XANAX) Substance Use Type: Marijuana Hx Substance Use Treatment: No Review of Systems - Review of Systems Comments:: 06/29/19 08:17 ROS: A complete review of 10 out of 10 review of systems is taken and is negative apart from what is previously mentioned below and in the HPI. *Physical Exam - Vital Signs Last Vital Signs Temp Pulse Resp BP Pulse Ox 99.3 F 91 H 16 122/79 97 06/29/19 07:23 06/29/19 07:23 06/29/19 07:23 06/29/19 07:23 06/29/19 07:23 - Physical Exam 06/29/19 08:17 Vitals: Triage Vital signs reviewed General Appearance: No acute distress, well nourished well developed, Head: Atraumatic, Cardiac: Regular rate and rhythym, no murmurs, no rubs, no gallops, Lungs: Clear to auscultation bilateral, good air movement bilaterally, Abdomen: Soft, non distended, normal bowel sounds, non tender to palpation Extremities: Full range of motion to all extremities, no cyanosis, clubbing, or edema Skin: Warm and dry, no rashes or lesions, no rash, no petechiae Neuro: AOX3; cranial Nerves 2-12 grossly intact, strength intact to all extremities, sensation intact to all extremities, gait normal Psych: Normal mood, normal affect Medical Decision Making - Medical Decision Making 06/29/19 10:[address] Medina patient's neurologist most likely these represent withdrawal seizures Agrees with current epilepsy regiment Patient CIWA scale is [address] GERA Bello care Patient medically clear for detox Antiepileptic regimen Lamictal 150 mg p.o. twice daily, phenytoin extended release 200 mg p.o. twice daily Patient is to follow-up for neurological follow-up and phenytoin level testing with Dr. Medina within 1 week Findings, need for follow-up and strict return instructions discussed with patient. Discharge - Discharge Information Problems reviewed: Yes Clinical Impression/Diagnosis: Seizure Condition: Fair - Admission No - Follow up/Referral Referrals: Josiah Saunders MD [Staff Physician] - - Patient Discharge Instructions Patient Printed Discharge Instructions: DI for Seizure Disorder -- Adult Additional Instructions: Lamictal 150 mg p.o. twice daily, phenytoin extended release 200 mg p.o. twice daily Follow-up with Dr. Medina after detox return to ED for any severe worsening symptoms or for any concerns. - Post Discharge Activity
[2019-06-29] MEDS ORDERED: lamoTRIgine 25 MG TABLET PO ONE (08:18)
[2019-06-29] MEDS ORDERED: PHENYTOIN 50 MG TAB.CHEW PO ONE (08:30)
[2019-06-29] MEDS ORDERED: lamoTRIgine 25 MG TABLET ONE (08:33)
[2019-06-29 10:36] VITALS: BP 124/57; PULSE 102
== END 2019-06-29 10:36 | disposition home or self-care (01) ==
LOC: JER 07:15 → SUPCPDRO 07:15 → JER 10:36
DX: G40.909 Epilepsy, unspecified, not intractable, without status epilepticus (principal); Z91.14 Patient's other noncompliance with medication regimen
CPT/HCPCS: 99282-25

== ENCOUNTER 2019-06-29 10:58 | Inpatient (IN) | payer OTHER ==
[2019-06-29 11:36] VITALS: BMI 25.0
--- NOTE | 2019-06-29 11:53 | HP ---
COWS - Scale Resting Pulse: 1= [place] 81-100 Sweatin= Beads of Sweat on Face Restless Observation: 1= Difficult to Sit Still Pupil Size: 1= Pupils >than Normal Bone or Joint Aches: 2= Severe Diffuse Aches Runny Nose/ Eye Tearin= Runny Nose/Eyes GI Upset > 30mins: 2= Nausea/Diarrhea Tremor Observation: 1= Tremor [place], Not Seen Yawning Observation: 0= None Anxiety or Irritability: 0= None Goose Flesh Skin: 0=Smooth Skin COWS Score: 13 CIWA Score - Admission Criteria OASAS Guidelines: Admission for Medically Managed Detox: Requires at least one of the followin. CIWA greater than 12 2. Seizures within the past 24 hours 3. Delirium tremens within the past 24 hours 4. Hallucinations within the past 24 hours 5. Acute intervention needed for co occurring medical disorder 6. Acute intervention needed for co occurring psychiatric disorder 7. Severe withdrawal that cannot be handled at a lower level of care (continued vomiting, continued diarrhea, abnormal vital signs) requiring intravenous medication and/or fluids 8. Admitting History and Physical - Admission History of Present Illness: 28 year old male with history of oral opioid dependence with withdrawals. He was in [facility] ER after 2 episodes of seizures. Cleared by Neurology and thought as withdrawal from benzodiazepine use. He is using Percocets daily anywhere from 1-5 tabs per day, started for over one year and after recreation use. Last used percocet 1.5 days ago. He was using benzodizepines daily on the streets approximately 3 pills of 2 mg Xanax per day, last used 2 days ago. He is at risk for overdose as he is using oral opioids and in combination of benzodiazpines. He does not smoke ciggarettes. He smokes marijuana 2-3 blunts a day, last smoked last night. PMH: Seizure Disorder non-compliant with meds ( misses one or two days and then resumes) Psurg: Appendectomy at teenage years Meds: lamictal 150mg BID, dilantin 200mg BID All: None History Source: Patient Limitations to Obtaining History: No Limitations - Past Medical History FORENSIC PSYCHIATRIST: Yes: Seizure - Past Surgical History Past Surgical History: Yes: Appendectomy - Smoking History Smoking history: Never smoked Have you smoked in the past 12 months: No Aproximately how many cigarettes per day: 0 - Alcohol/Substance Use Hx Alcohol Use: No History of Substance Use: reports: Marijuana Date of Last Use: 06/27/19 - Social History Usual Living Arrangement: Yes: With Parent Do you think of yourself as: Declined to answer ADL: Independent 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 History of Recent Travel: No Admission ROS S - HPI Allergies/Adverse Reactions: Allergies Allergy/AdvReac Type Severity Reaction Status Date / Time No Known Allergies Allergy Verified 06/29/19 11:24 Exam Limitations: No Limitations - Ebola screening Have you traveled outside of the country in the last 21 days: No Have you had contact with anyone from an Ebola affected area: No Have you been sick,other than usual withdrawal symptoms: No Do you have a fever: No Patient History - Patient Medical History Hx Chronic Obstructive Pulmonary Disease (COPD): No HX Cerebrovascular Accident: No Hx Seizures: Yes (EPILEPSY) Hx Depression: No Hx Suicide Attempt: No - Patient Surgical History Past Surgical History: Yes Hx Abdominal Surgery: Yes (hernia) Hx Appendectomy: Yes - PPD History Previous Implant?: Yes Documented Results: Negative w/o proof Implanted On Prior R Admission?: No PPD to be Administered?: Yes - Smoking Cessation Smoking history: Never smoked Have you smoked in the past 12 months: No Aproximately how many cigarettes per day: 0 Hx Chewing Tobacco Use: No Initiated information on smoking cessation: Yes 'Breaking Loose' booklet given: 06/29/19 - Substances abused Alprazolam (Xanax) Other (specify): 2mg Substance route: Oral Frequency: 3-6 times per week Amount used: 2-3 pills Age of first use: 21 Date of last use: 06/25/19 Other Other (specify): percocet Substance route: Oral Frequency: Daily Amount used: 3-4 pills Age of first use: 22 Date of last use: 06/27/19 Admission Physical Exam S - Vital Signs Vital Signs: Vital Signs - 24 hr 06/29/19 11:22 Temperature 100.3 F H Pulse Rate 89 Respiratory 20 Rate Blood Pressure 117/77 - Physical General Appearance: Yes: Mild Distress, Tremorous, Irritable, Sweating, Anxious HEENTM: Yes: EOMI, Hearing grossly Normal, Normal ENT Inspection, Normocephalic , Normal Voice, AISHWARYA, Pharynx Normal, Tm's normal Respiratory: Yes: Chest Non-Tender, Lungs Clear, Normal Breath Sounds, No Respiratory Distress, No Accessory Muscle Use Neck: Yes: No masses,lesions,Nodules, Supple, Trachea in good position Breast: Yes: Within Normal Limits Cardiology: Yes: Regular Rhythm, Regular Rate, S1, S2 Abdominal: Yes: Normal Bowel Sounds, Non Tender, Soft, Other (epigastric tenderness) Genitourinary: Yes: Within Normal Limits Back: Yes: Normal Inspection Musculoskeletal: Yes: full range of Motion, Gait Steady, Pelvis Stable Extremities: Yes: Normal Capillary Refill, Normal Inspection, Normal Range of Motion, Non-Tender Neurological: Yes: access director II-XII NML intact, Fully Oriented, Alert, Motor Strength 5/5, Normal Mood/Affect, Normal Response Integumentary: Yes: Normal Color, Warm Lymphatic: Yes: Within Normal Limits - Diagnostic (1) Opioid dependence with withdrawal Current Visit: Yes Status: Acute (2) Cocaine use disorder Current Visit: Yes Status: Acute Cleared for Admission [facility] - Detox or Rehab [facility] Level of Care: Medically Managed Claeared for Rehab Admission: No Inpatient Rehab Admission - Rehab Decision to Admit Inpatient rehab admission?: No
[2019-06-29] MEDS ORDERED: MENTHOL/PHENOL 1 EACH UD MM PRN (12:04)
[2019-06-29] MEDS ORDERED: cloNIDine HCL 0.1 MG TABLET PO PRN (12:04)
[2019-06-29] MEDS ORDERED: MAG HYDROX/AL HYDROX/SIMETH 30 ML UNIT-DOSE CUP PO PRN (12:04)
[2019-06-29] MEDS ORDERED: MAGNESIUM HYDROX 2400MG/30ML ORAL SUSPENSION 30 ML CUP PO PRN (12:04)
[2019-06-29] MEDS ORDERED: IBUPROFEN 400 MG TABLET (FP) PO PRN (12:04)
[2019-06-29] MEDS ORDERED: MAGNESIUM CITRATE 300 ML BOTTLE PO PRN (12:04)
[2019-06-29] MEDS ORDERED: BISMUTH SUBSALICYLATE 262 MG/15 ML BTL PO PRN (12:04)
[2019-06-29] MEDS ORDERED: ACETAMINOPHEN 325 MG TABLET (FP) PO PRN ×2 (12:04)
[2019-06-29] MEDS ORDERED: METHADONE HCL 10 MG TABLET (FOR DETOX USE ONLY) PO ONE (14:00)
[2019-06-29 16:49] LABS: HEMATOCRIT 41.6 % (35.4-49); HEMOGLOBIN 13.9 GM/dL (11.7-16.9); MCH 27.2 pg (25.7-33.7); MCHC 33.4 g/dl (32.0-35.9); MEAN CELL VOLUME 81.6 fl (80-96); MEAN PLT VOLUME 9.4 fl (7.5-11.1); PLATELET COUNT 267 K/MM3 (134-434); RDW 13.2 % (11.9-15.9); WHITE BLOOD COUNT 8.4 K/mm3 (4.0-10.0)
[2019-06-29 17:00] LABS: ALBUMIN 4.5 g/dl (3.4-5.0); BILIRUBIN,TOTAL 0.5 mg/dL (0.2-1); CALCIUM 9.1 mg/dL (8.5-10.1); POTASSIUM 3.3 mmol/L (3.5-5.1); TOT PROT 7.7 g/dl (6.4-8.2)
[2019-06-29] MEDS: METHOCARBAMOL 500 MG TABLET PO PRN (20:07)
[2019-06-29] MEDS: hydrOXYzine PAMOATE 25 MG CAPSULE (FP) PO PRN (20:07)
[2019-06-29] MEDS: PATIENT'S OWN MEDICATION (NON-FORMULARY) (Lamotrigine [Lamictal] 150 MG) PO SCH (21:29)
[2019-06-29] MEDS: PHENYTOIN NA PO SCH (21:29)
[2019-06-29] MEDS: THIAMINE HCL 100 MG TABLET (FP) PO SCH (21:30)
[2019-06-29] MEDS: MELATONIN 5 MG TABLETS PO PRN (21:30)
--- NOTE | 2019-06-30 07:55 | PN ---
S Progress Note Note: Patient's potassium level is 3.3. Patient is asymptomatic Vital Signs Temperature 98.4 F 06/29/19 21:42 Pulse Rate 84 06/29/19 21:42 Respiratory Rate 16 06/30/19 03:30 Blood Pressure 132/62 06/29/19 21:42 O2 Sat by Pulse Oximetry (%) Action: Potassium chloride 40mEq tablet oral x 2 days ordered
[2019-06-30] MEDS ORDERED: METHADONE HCL 5 MG TABLET (FOR DETOX USE ONLY) PO ONE (10:00)
[2019-06-30] MEDS: POTASSIUM CHLORIDE TABS 20 MEQ TABLET.ER (FP) PO SCH (10:52)
[2019-06-30] MEDS: PRENATAL VITAMINS W/ FOLIC ACID TABLET (FP) PO SCH (10:52)
[2019-06-30] MEDS: PATIENT'S OWN MEDICATION (NON-FORMULARY) (Lamotrigine [Lamictal] 150 MG) PO SCH ×2 (10:53→22:07)
[2019-06-30] MEDS: PHENYTOIN NA PO SCH ×2 (10:53→22:07)
[2019-06-30] MEDS: NICOTINE 7 MG/24 HOURS TOPICAL PATCH TD SCH (10:57)
--- NOTE | 2019-06-30 12:12 | PN ---
B[facility] COWS - Scale Resting Pulse: 0= [place] 80 or Below Sweatin= No chills or Flushing Restless Observation: 1= Difficult to Sit Still Pupil Size: 1= Pupils >than Normal Bone or Joint Aches: 1= Mild Discomfort Runny Nose/ Eye Tearin= Nasal Congestion GI Upset > 30mins: 1= Stomach Cramp Tremor Observation of Outstretched Hands: 1= Tremor [place], Not Seen Yawning Observation: 1= 1-2x During Session Anxiety or Irritability: 2=Irritable/Anxious Goose Flesh Skin: 0=Smooth Skin COWS Score: 9 S Progress Note (SOAP) Subjective: alert,irritable,anxious,interrupted sleep,pain in the body and back Objective: 06/30/19 12:14 Vital Signs Temperature 99.9 F H 06/30/19 05:00 Pulse Rate 71 06/30/19 05:00 Respiratory Rate 18 06/30/19 05:00 Blood Pressure 139/75 06/30/19 05:00 O2 Sat by Pulse Oximetry (%) Laboratory Last Values WBC 8.4 K/mm3 (4.0-10.0) 06/29/19 12:00 RBC 5.10 M/mm3 (4.00-5.60) 06/29/19 12:00 Hgb 13.9 GM/dL (11.7-16.9) 06/29/19 12:00 Hct 41.6 % (35.4-49) 06/29/19 12:00 MCV 81.6 fl (80-96) 06/29/19 12:00 MCH 27.2 pg (25.7-33.7) 06/29/19 12:00 MCHC 33.4 g/dl (32.0-35.9) 06/29/19 12:00 RDW 13.2 % (11.9-15.9) 06/29/19 12:00 Plt Count 267 K/MM3 (134-434) 06/29/19 12:00 MPV 9.4 fl (7.5-11.1) 06/29/19 12:00 Sodium 138 mmol/L (136-145) 06/29/19 12:00 Potassium 3.3 mmol/L (3.5-5.1) L 06/29/19 12:00 Chloride 105 mmol/L (98-107) 06/29/19 12:00 Carbon Dioxide 25 mmol/L (21-32) 06/29/19 12:00 Anion Gap 8 MMOL/L (8-16) 06/29/19 12:00 BUN 5.0 mg/dL (7-18) L 06/29/19 12:00 Creatinine 1.0 mg/dL (0.55-1.3) 06/29/19 12:00 Est GFR (CKD-EPI)AfAm 116.54 06/29/19 12:00 Est GFR (CKD-EPI)NonAf 100.55 06/29/19 12:00 Random Glucose 120 mg/dL (74-106) H 06/29/19 12:00 Calcium 9.1 mg/dL (8.5-10.1) 06/29/19 12:00 Total Bilirubin 0.5 mg/dL (0.2-1) 06/29/19 12:00 AST 17 U/L (15-37) 06/29/19 12:00 ALT 26 U/L (13-61) 06/29/19 12:00 Alkaline Phosphatase 76 U/L (45-117) 06/29/19 12:00 Total Protein 7.7 g/dl (6.4-8.2) 06/29/19 12:00 Albumin 4.5 g/dl (3.4-5.0) 06/29/19 12:00 RPR Titer Nonreactive (NONREACTIVE) 06/29/19 12:00 Assessment: 06/30/19 12:15 withdrawal symptom Plan: continue detox methadone regimen,k is 3.3 on potassium replacement,initial glucose is 120,will repeat fasting glucose and k in am
[2019-06-30] MEDS: THIAMINE HCL 100 MG TABLET (FP) PO SCH (22:06)
[2019-06-30] MEDS: MELATONIN 5 MG TABLETS PO PRN (22:08)
[2019-06-30] MEDS: hydrOXYzine PAMOATE 25 MG CAPSULE (FP) PO PRN (22:14)
[2019-06-30] MEDS: METHOCARBAMOL 500 MG TABLET PO PRN (23:11)
[2019-07-01] MEDS ORDERED: METHADONE HCL 10 MG TABLET (FOR DETOX USE ONLY) PO ONE (10:00)
[2019-07-01] MEDS: NICOTINE 7 MG/24 HOURS TOPICAL PATCH TD SCH (10:14)
[2019-07-01] MEDS: POTASSIUM CHLORIDE TABS 20 MEQ TABLET.ER (FP) PO SCH (10:15)
[2019-07-01] MEDS: PATIENT'S OWN MEDICATION (NON-FORMULARY) (Lamotrigine [Lamictal] 150 MG) PO SCH (10:15)
[2019-07-01] MEDS: PHENYTOIN NA PO SCH (10:15)
[2019-07-01] MEDS: PRENATAL VITAMINS W/ FOLIC ACID TABLET (FP) PO SCH (10:15)
--- NOTE | 2019-07-01 10:59 | PN ---
BHS COWS - Scale Resting Pulse: 1= [place] 81-100 Sweatin= No chills or Flushing Restless Observation: 1= Difficult to Sit Still Pupil Size: 0= Normal to Room Light Bone or Joint Aches: 1= Mild Discomfort Runny Nose/ Eye Tearin= None GI Upset > 30mins: 0= None Tremor Observation of Outstretched Hands: 0= None Yawning Observation: 0= None Anxiety or Irritability: 0= None Goose Flesh Skin: 0=Smooth Skin COWS Score: 3 BHS Progress Note (SOAP) Subjective: feeling better little anxiety Objective: 07/01/19 10:58 Vital Signs Temperature 97.3 F L 07/01/19 06:00 Pulse Rate 76 07/01/19 06:00 Respiratory Rate 18 07/01/19 06:00 Blood Pressure 116/66 07/01/19 06:00 O2 Sat by Pulse Oximetry (%) Laboratory Tests 06/29/19 06/29/19 06/29/19 12:00 12:00 12:00 WBC 8.4 RBC 5.10 Hgb 13.9 Hct 41.6 MCV 81.6 MCH 27.2 MCHC 33.4 RDW 13.2 Plt Count 267 MPV 9.4 Sodium 138 Potassium 3.3 L Chloride 105 Carbon Dioxide 25 Anion Gap 8 BUN 5.0 L Creatinine 1.0 Est GFR (CKD-EPI)AfAm 116.54 Est GFR (CKD-EPI)NonAf 100.55 Random Glucose 120 H Fasting Glucose Calcium 9.1 Total Bilirubin 0.5 AST 17 ALT 26 Alkaline Phosphatase 76 Total Protein 7.7 Albumin 4.5 RPR Titer Nonreactive 07/01/19 08:10 WBC RBC Hgb Hct MCV MCH MCHC RDW Plt Count MPV Sodium Potassium 4.0 Chloride Carbon Dioxide Anion Gap BUN Creatinine Est GFR (CKD-EPI)AfAm Est GFR (CKD-EPI)NonAf Random Glucose Fasting Glucose 90 Calcium Total Bilirubin AST ALT Alkaline Phosphatase Total Protein Albumin RPR Titer aaox3 ambulating no acute distress Assessment: 07/01/19 10:58 mild to no s/s of withdrawals noted Plan: complete detox d/c later today
--- NOTE | 2019-07-01 11:01 | DS ---
[facility] Detox Discharge Summary Admission Date: 06/29/19 Discharge Date: 07/01/19 - History Present History: Cocaine Dependence, Opioid Dependence - Physical Exam Results Vital Signs: Vital Signs Temperature 97.3 F L 07/01/19 06:00 Pulse Rate 76 07/01/19 06:00 Respiratory Rate 18 07/01/19 06:00 Blood Pressure 116/66 07/01/19 06:00 O2 Sat by Pulse Oximetry (%) Pertinent Admission Physical Exam Findings: Vital Signs Temperature 97.3 F L 07/01/19 06:00 Pulse Rate 76 07/01/19 06:00 Respiratory Rate 18 07/01/19 06:00 Blood Pressure 116/66 07/01/19 06:00 O2 Sat by Pulse Oximetry (%) Laboratory Tests 06/29/19 06/29/19 06/29/19 12:00 12:00 12:00 WBC 8.4 RBC 5.10 Hgb 13.9 Hct 41.6 MCV 81.6 MCH 27.2 MCHC 33.4 RDW 13.2 Plt Count 267 MPV 9.4 Sodium 138 Potassium 3.3 L Chloride 105 Carbon Dioxide 25 Anion Gap 8 BUN 5.0 L Creatinine 1.0 Est GFR (CKD-EPI)AfAm 116.54 Est GFR (CKD-EPI)NonAf 100.55 Random Glucose 120 H Fasting Glucose Calcium 9.1 Total Bilirubin 0.5 AST 17 ALT 26 Alkaline Phosphatase 76 Total Protein 7.7 Albumin 4.5 RPR Titer Nonreactive 07/01/19 08:10 WBC RBC Hgb Hct MCV MCH MCHC RDW Plt Count MPV Sodium Potassium 4.0 Chloride Carbon Dioxide Anion Gap BUN Creatinine Est GFR (CKD-EPI)AfAm Est GFR (CKD-EPI)NonAf Random Glucose Fasting Glucose 90 Calcium Total Bilirubin AST ALT Alkaline Phosphatase Total Protein Albumin RPR Titer aaox3 ambulating no acute distress - Treatment Hospital Course: Detox Protocol Followed, Detoxed Safely, Responded well, Discharged Condition Good, Rehab Referral Accepted Patient has Accepted a Rehab Referral to: referral provided - Medication Discharge Medications: Ambulatory Orders Lamotrigine [Lamictal] 150 mg PO BID #60 tablet 07/29/18 Phenytoin Na Extended [Dilantin -] 200 mg PO BID #120 capsule 07/29/18 - Diagnosis (1) Cocaine use disorder Current Visit: Yes Status: Chronic (2) Opioid dependence with withdrawal Current Visit: Yes Status: Chronic (3) Anxiety Current Visit: No Status: Acute (4) Chlamydia contact, treated Current Visit: No Status: Resolved (5) Seizure Current Visit: No Status: Acute - AMA Did Patient Leave Against Medical Advice: No
[2019-07-01 12:06] VITALS: BP 143/84; PULSE 82; TEMP 100.2
[2019-07-02] MEDS ORDERED: METHADONE HCL 5 MG TABLET (FOR DETOX USE ONLY) PO ONE (06:00)
== END 2019-07-01 12:31 | disposition home or self-care (01) | DRG 773 ==
LOC: YASAS 10:58 → Y6N 13:08
PROVIDERS: ADMIT Allergy & Immunology; ATTEND Allergy & Immunology
PROC: HZ2ZZZZ Detoxification Services for Substance Abuse Treatment (ICD-10-PCS; principal; 2019-06-29)
DX: F11.23 Opioid dependence with withdrawal (principal); F14.20 Cocaine dependence, uncomplicated; F13.20 Sedative, hypnotic or anxiolytic dependence, uncomplicated; F41.9 Anxiety disorder, unspecified; G40.909 Epilepsy, unspecified, not intractable, without status epilepticus; Z20.2 Contact with and (suspected) exposure to infections with a predominantly sexual mode of transmission
CPT/HCPCS: 36415; 80053; 82947; 84132; 85027; 86593

== ENCOUNTER 2020-10-04 11:35 | Emergency (ER) | payer OTHER ==
[2020-10-04 11:41] VITALS: TEMP 98.2; BMI 24.2
[2020-10-04 13:14] LABS: BASO % 0.4 % (0-2.0); EOS % 0.7 % (0-4.5); HEMATOCRIT 42.3 % (35.4-49); HEMOGLOBIN 14.1 GM/dL (11.7-16.9); LYMPH % 19.3 % (8-40); MCH 26.9 pg (25.7-33.7); MCHC 33.4 g/dl (32.0-35.9); MEAN CELL VOLUME 80.6 fl (80-96); MEAN PLT VOLUME 9.7 fl (7.5-11.1); MONO % 8.2 % (3.8-10.2); NEUT % 71.4 % (42.8-82.8); PLATELET COUNT 185 K/MM3 (134-434); RBC 5.25 M/mm3 (4.00-5.60); RDW 13.3 % (11.9-15.9)
[2020-10-04 13:50] LABS: ALBUMIN 3.9 g/dl (3.4-5.0); BLOOD UREA NITROGEN 7.6 mg/dL (7-18); CALCIUM 9.3 mg/dL (8.5-10.1); MAGNESIUM 2.6 mg/dL (1.8-2.4)
[2020-10-04 13:53] LABS: CREATININE 0.9 mg/dL (0.55-1.3)
[2020-10-04 13:55] LABS: BILIRUBIN,TOTAL 0.4 mg/dL (0.2-1); TOT PROT 7.2 g/dl (6.4-8.2)
[2020-10-04] MEDS ORDERED: FOSPHENYTOIN SODIUM 1,000 MG in SODIUM CHLORIDE 100 ML IVPB ONE (14:42)
[2020-10-04] MEDS ORDERED: LORazepam 2 MG/ML SDV VIAL ONE (14:55)
[2020-10-04] MEDS ORDERED: LORazepam 2 MG/ML SDV VIAL IVPUSH ONE (15:01)
[2020-10-04] MEDS ORDERED: MIDAZOLAM HCL 2 MG/2 ML SINGLE DOSE VIAL IVPUSH ONE (15:27)
[2020-10-04 20:47] VITALS: BP 117/68; PULSE 94
== END 2020-10-04 19:30 | disposition home or self-care (01) ==
LOC: JER 11:35
PROC: 3E033NZ Introduction of Analgesics, Hypnotics, Sedatives into Peripheral Vein, Percutaneous Approach (ICD-10-PCS; principal; 2020-10-04)
PROC: 3E033GC Introduction of Other Therapeutic Substance into Peripheral Vein, Percutaneous Approach (ICD-10-PCS; 2020-10-04)
DX: R56.9 Unspecified convulsions (principal)
CPT/HCPCS: 36415; 70450-TC; 71046-TC-FY; 80053; 83735; 85025; 93005; 93010; 99285-25

== ENCOUNTER 2020-12-15 09:46 | Emergency (ER) | payer OTHER ==
[2020-12-15 09:51] VITALS: TEMP 98.9; BMI 25.0
[2020-12-15 11:46] LABS: BASO % 0.6 % (0-2.0); EOS % 1.8 % (0-4.5); HEMATOCRIT 41.6 % (35.4-49); HEMOGLOBIN 13.5 GM/dL (11.7-16.9); LYMPH % 25.9 % (8-40); MCH 26.5 pg (25.7-33.7); MCHC 32.4 g/dl (32.0-35.9); MEAN CELL VOLUME 81.8 fl (80-96); MEAN PLT VOLUME 9.2 fl (7.5-11.1); MONO % 8.9 % (3.8-10.2); NEUT % 62.8 % (42.8-82.8); PLATELET COUNT 234 10^3/uL (134-434); RBC 5.09 M/mm3 (4.00-5.60); WHITE BLOOD COUNT 7.1 K/mm3 (4.0-10.0)
[2020-12-15 12:51] LABS: ALBUMIN 4.1 g/dl (3.4-5.0); BLOOD UREA NITROGEN 8.2 mg/dL (7-18); CALCIUM 9.2 mg/dL (8.5-10.1)
[2020-12-15 12:54] LABS: CREATININE 0.9 mg/dL (0.55-1.3)
[2020-12-15 12:56] LABS: BILIRUBIN,TOTAL 0.4 mg/dL (0.2-1)
[2020-12-15 13:57] VITALS: BP 114/64; PULSE 69
[2020-12-15] MEDS ORDERED: lamoTRIgine 100 MG TABLET ONE (15:05)
[2020-12-15] MEDS ORDERED: PHENYTOIN NA EXTENDED 100 MG CAPSULE (FP) ONE (15:05)
[2020-12-15] MEDS ORDERED: PHENYTOIN NA EXTENDED 100 MG CAPSULE (FP) PO ONE (15:11)
== END 2020-12-15 15:09 | disposition home or self-care (01) ==
LOC: JER 09:46
DX: R56.9 Unspecified convulsions (principal)
CPT/HCPCS: 36415; 80053; 80185; 85025; 93005; 93010; 99283-25

== ENCOUNTER 2021-02-26 22:56 | Emergency (ER) | payer OTHER ==
[2021-02-26 23:07] VITALS: BMI 25.0
[2021-02-27 00:31] LABS: BASO % 0.5 % (0-2.0); EOS % 0.6 % (0-4.5); HEMATOCRIT 38.3 % (35.4-49); HEMOGLOBIN 13.1 GM/dL (11.7-16.9); LYMPH % 21.8 % (8-40); MCH 27.5 pg (25.7-33.7); MCHC 34.1 g/dl (32.0-35.9); MEAN CELL VOLUME 80.7 fl (80-96); MEAN PLT VOLUME 9.1 fl (7.5-11.1); MONO % 7.6 % (3.8-10.2); NEUT % 69.5 % (42.8-82.8); PLATELET COUNT 260 10^3/uL (134-434); RBC 4.74 M/mm3 (4.00-5.60); RDW 13.6 % (11.9-15.9); WHITE BLOOD COUNT 10.8 K/mm3 (4.0-10.0)
[2021-02-27] MEDS ORDERED: ACETAMINOPHEN 1000 MG/100 ML VIAL (NON FORMULARY) IVPB ONE (00:37)
[2021-02-27] MEDS ORDERED: ACETAMINOPHEN INJECTION 100 ML IVPB ONE (00:44)
[2021-02-27 00:59] LABS: CALCIUM 9.2 mg/dL (8.5-10.1)
[2021-02-27 01:00] LABS: ALBUMIN 4.1 g/dl (3.4-5.0); BLOOD UREA NITROGEN 7.4 mg/dL (7-18)
[2021-02-27 01:03] LABS: CREATININE 0.9 mg/dL (0.55-1.3)
[2021-02-27 01:05] LABS: BILIRUBIN,TOTAL 0.2 mg/dL (0.2-1)
[2021-02-27] MEDS ORDERED: DIPHTH,PERTUSS(ACELL),TET 0.5 ML DISP.SYRIN IM ONE ×2 (01:53→02:54)
[2021-02-27 03:09] VITALS: TEMP 98.8
[2021-02-27] MEDS ORDERED: levETIRAcetam 500 MG/5 ML INJECTION VIAL IVPB ONE ×2 (03:39→04:10)
[2021-02-27] MEDS ORDERED: IBUPROFEN 400 MG TABLET (FP) PO ONE ×2 (05:03→05:30)
[2021-02-27 06:07] VITALS: BP 114/74; PULSE 70
[2021-02-27 10:33] LABS: HIV INTERPRETATION NEGATIVE (NEGATIVE)
[2021-03-02 01:07] LABS: FIBROSIS SCORE. 0.14 (0.00-0.21); HCV ALPHA 2 MACRO CHART 190 mg/dL (110-276); NECRO.INFLAM ACT.SCORE 0.06 (0.00-0.17); NECROINFLAM. ACTIVITY GRADE A0-No activity (.)
== END 2021-02-27 06:08 | disposition home or self-care (01) ==
LOC: JER 22:56
PROC: 0HQ1XZZ Repair Face Skin, External Approach (ICD-10-PCS; principal; 2021-02-26)
PROC: 3E033GC Introduction of Other Therapeutic Substance into Peripheral Vein, Percutaneous Approach (ICD-10-PCS; 2021-02-26)
PROC: 3E0234Z Introduction of Serum, Toxoid and Vaccine into Muscle, Percutaneous Approach (ICD-10-PCS; 2021-02-26)
DX: R56.9 Unspecified convulsions (principal); S01.111A Laceration without foreign body of right eyelid and periocular area, initial encounter; W19.XXXA Unspecified fall, initial encounter
CPT/HCPCS: 12013; 36415; 70450-TC; 80053; 82172; 82977; 83010; 83883; 84460; 85025; 86705; 86706; 86707; 87340; 87350; 87389; 87517; 87522; 87529; 90471; 90715; 93005; 93010; 96374; 96375; 99285-25; J0131

== ENCOUNTER 2021-03-10 12:29 | Emergency (ER) | payer OTHER ==
[2021-03-10 12:35] VITALS: BP 108/66; PULSE 76; TEMP 98.2; BMI 25.0
== END 2021-03-10 13:22 | disposition home or self-care (01) ==
LOC: JERFT 12:29
DX: Z48.02 Encounter for removal of sutures (principal)
CPT/HCPCS: 99281-25

== ENCOUNTER 2021-06-30 09:56 | Emergency (ER) | payer OTHER ==
[2021-06-30 10:29] VITALS: TEMP 98.8; BMI 24.2
[2021-06-30] MEDS ORDERED: levETIRAcetam 500 MG TABLET (FP) PO ONE ×2 (11:24→11:26)
[2021-06-30] MEDS ORDERED: ACETAMINOPHEN 500 MG TABLET (FP) PO ONE (11:30)
[2021-06-30] MEDS ORDERED: ACETAMINOPHEN 325 MG TABLET (FP) ONE (11:32)
[2021-06-30] MEDS ORDERED: DIPHTH,PERTUSS(ACELL),TET 0.5 ML DISP.SYRIN IM ONE ×2 (12:06→12:13)
[2021-06-30 14:20] VITALS: BP 112/65; PULSE 85
== END 2021-06-30 14:20 | disposition home or self-care (01) ==
LOC: JER 09:56
PROC: 0JQ10ZZ Repair Face Subcutaneous Tissue and Fascia, Open Approach (ICD-10-PCS; principal; 2021-06-30)
PROC: 3E0234Z Introduction of Serum, Toxoid and Vaccine into Muscle, Percutaneous Approach (ICD-10-PCS; 2021-06-30)
DX: R56.9 Unspecified convulsions (principal); S01.419A Laceration without foreign body of unspecified cheek and temporomandibular area, initial encounter
CPT/HCPCS: 12013; 90471; 90715; 93005; 93010; 99283-25

== ENCOUNTER 2021-10-24 10:33 | Emergency (ER) | payer OTHER ==
[2021-10-24 10:38] VITALS: TEMP 99.3; BMI 23.3
[2021-10-24 11:49] LABS: BASO % 0.3 % (0-2.0); EOS % 0.3 % (0-4.5); HEMATOCRIT 41.4 % (35.4-49); LYMPH % 19.6 % (8-40); MCH 26.8 pg (25.7-33.7); MCHC 33.8 g/dl (32.0-35.9); MEAN CELL VOLUME 79.4 fl (80-96); MEAN PLT VOLUME 8.9 fl (7.5-11.1); MONO % 6.4 % (3.8-10.2); NEUT % 73.4 % (42.8-82.8); PLATELET COUNT 259 10^3/uL (134-434); RBC 5.21 M/mm3 (4.00-5.60); RDW 13.5 % (11.9-15.9); WHITE BLOOD COUNT 7.2 K/mm3 (4.0-10.0)
[2021-10-24 12:12] LABS: CALCIUM 9.5 mg/dL (8.5-10.1)
[2021-10-24 12:13] LABS: ALBUMIN 4.2 g/dl (3.4-5.0); MAGNESIUM 2.7 mg/dL (1.8-2.4)
[2021-10-24 12:16] LABS: CREATININE 0.9 mg/dL (0.55-1.3)
[2021-10-24 12:17] LABS: TOT PROT 7.3 g/dl (6.4-8.2)
[2021-10-24 12:18] LABS: BILIRUBIN,TOTAL 0.5 mg/dL (0.2-1)
[2021-10-24] MEDS ORDERED: ACETAMINOPHEN 1000 MG/100 ML BAG IVPB ONE (12:59)
[2021-10-24] MEDS ORDERED: SODIUM CHLORIDE 0.9% 500 ML INFUS.BAG IV ONE (12:59)
[2021-10-24] MEDS ORDERED: ACETAMINOPHEN INJECTION 100 ML IVPB ONE (13:01)
[2021-10-24 13:12] LABS: PH,URINE 6.5 (5.0-8.0); URINE APPEARANCE CLEAR; URINE BILIRUBIN NEGATIVE (NEGATIVE); URINE COLOR YELLOW; URINE GLUCOSE (UA) NEGATIVE (NEGATIVE); URINE KETONE 1+ (NEGATIVE); URINE LEUK ESTERASE NEGATIVE (NEGATIVE); URINE NITRITE NEGATIVE (NEGATIVE); URINE PROTEIN NEGATIVE (NEGATIVE); URINE UROBILINOGEN 0.2 mg/dL (0.2-1.0)
[2021-10-24] MEDS ORDERED: levETIRAcetam 500 MG/5 ML INJECTION VIAL IVPB ONE ×2 (14:22→14:33)
[2021-10-24 15:57] VITALS: BP 122/66; PULSE 80
== END 2021-10-24 15:57 | disposition home or self-care (01) ==
LOC: JER 10:33
PROC: 3E033GC Introduction of Other Therapeutic Substance into Peripheral Vein, Percutaneous Approach (ICD-10-PCS; principal; 2021-10-24)
DX: R56.9 Unspecified convulsions (principal)
CPT/HCPCS: 0241U-QW; 36415; 70450-TC; 71045-TC-FY; 80053; 80156; 80175; 80177; 81003; 82962; 83735; 85025; 87086; 87807; 93005; 93010; 96374; 96375; 99285-25; C9803-CS; U0003; U0005

== ENCOUNTER 2022-06-24 12:46 | Emergency (ER) | payer OTHER ==
[2022-06-24 12:52] VITALS: BP 169/69; PULSE 74; RESP 18; TEMP 98.4; BMI 23.3
== END 2022-06-24 15:46 | disposition home or self-care (01) ==
LOC: JER 12:46
DX: G40.89 Other seizures (principal)
CPT/HCPCS: 99281-25

== ENCOUNTER 2022-07-04 14:10 | Emergency (ER) | payer OTHER ==
[2022-07-04 14:29] VITALS: BP 100/66; PULSE 88; RESP 18; TEMP 98; BMI 23.3
[2022-07-04] MEDS ORDERED: carBAMazepine XR 400 MG TAB.ER.12H PO ONE (15:59)
[2022-07-04] MEDS ORDERED: carBAMazepine 200 MG TABLET ONE (16:13)
== END 2022-07-04 18:26 | disposition home or self-care (01) ==
LOC: JER 14:10
DX: R56.9 Unspecified convulsions (principal)
CPT/HCPCS: 70450-TC; 99284-25

== ENCOUNTER 2023-02-28 05:36 | Emergency (ER) | payer OTHER ==
[2023-02-28 05:48] VITALS: TEMP 98.6; BMI 22.4
[2023-02-28 07:05] LABS: HEMOGLOBIN 13.6 GM/dL (11.7-16.9); MCHC 33.9 g/dl (32.0-35.9)
[2023-02-28 07:07] LABS: BASO % 0.4 % (0-2.0); EOS % 0.6 % (0-4.5); HEMATOCRIT 40.1 % (35.4-49); LYMPH % 20.9 % (8-40); MCH 26.8 pg (25.7-33.7); MEAN CELL VOLUME 79.1 fl (80-96); MEAN PLT VOLUME 8.8 fl (7.5-11.1); MONO % 6.8 % (3.8-10.2); NEUT % 71.3 % (42.8-82.8); PLATELET COUNT 251 10^3/uL (134-434); RBC 5.08 M/mm3 (4.00-5.60); RDW 14.9 % (11.9-15.9); WHITE BLOOD COUNT 8.7 K/mm3 (4.0-10.0)
[2023-02-28 07:32] LABS: POTASSIUM 3.8 mmol/L (3.5-5.1)
[2023-02-28 07:34] LABS: ALBUMIN 4.2 g/dl (3.4-5.0); CALCIUM 8.8 mg/dL (8.5-10.1)
[2023-02-28 07:36] LABS: BLOOD UREA NITROGEN 13.6 mg/dL (7-18)
[2023-02-28 07:39] LABS: CREATININE 0.9 mg/dL (0.55-1.3)
[2023-02-28 07:40] LABS: BILIRUBIN,TOTAL 0.5 mg/dL (0.2-1); TOT PROT 7.3 g/dl (6.4-8.2)
[2023-02-28 08:06] VITALS: BP 100/71; PULSE 88; RESP 14
== END 2023-02-28 08:11 | disposition home or self-care (01) ==
LOC: JER 05:36
DX: G40.909 Epilepsy, unspecified, not intractable, without status epilepticus (principal); S00.81XA Abrasion of other part of head, initial encounter; K40.90 Unilateral inguinal hernia, without obstruction or gangrene, not specified as recurrent; S00.511A Abrasion of lip, initial encounter; W22.8XXA Striking against or struck by other objects, initial encounter
CPT/HCPCS: 36415; 70450-TC; 72125-TC; 80053; 82962; 85025; 93005; 93010; 99285-25

== ENCOUNTER 2023-08-30 16:12 | Emergency (ER) | payer OTHER ==
[2023-08-30 17:42] VITALS: BP 124/68; PULSE 74; RESP 18; TEMP 97.8; BMI 21.6
== END 2023-08-30 18:03 | disposition left against medical advice (07) ==
LOC: JER 16:12
DX: R56.9 Unspecified convulsions (principal)
CPT/HCPCS: 99283-25

== ENCOUNTER 2024-03-26 22:30 | Emergency (ER) | payer OTHER ==
[2024-03-26 22:38] VITALS: RESP 18; BMI 25.7
[2024-03-26] MEDS ORDERED: ACETAMINOPHEN INJECTION 100 ML ONE (23:33)
[2024-03-26] MEDS: ACETAMINOPHEN 1000 MG/100 ML BAG IVPB ONE (23:49)
[2024-03-26 23:55] LABS: BASO % 0.2 % (0-2.0); EOS % 0.2 % (0-4.5); HEMATOCRIT 39.7 % (35.4-49); HEMOGLOBIN 13.3 GM/dL (11.7-16.9); LYMPH % 11.7 % (8-40); MCH 26.8 pg (25.7-33.7); MCHC 33.6 g/dl (32.0-35.9); MEAN CELL VOLUME 79.9 fl (80-96); MEAN PLT VOLUME 8.6 fl (7.5-11.1); MONO % 3.8 % (3.8-10.2); NEUT % 84.1 % (42.8-82.8); PLATELET COUNT 274 10^3/uL (134-434); RBC 4.97 M/mm3 (4.00-5.60); RDW 14.3 % (11.9-15.9); URINE APPEARANCE CLEAR; URINE BILIRUBIN NEGATIVE (NEGATIVE); URINE COLOR YELLOW; URINE GLUCOSE (UA) NEGATIVE (NEGATIVE); URINE KETONE NEGATIVE (NEGATIVE); URINE LEUK ESTERASE NEGATIVE (NEGATIVE); URINE NITRITE NEGATIVE (NEGATIVE); URINE PROTEIN NEGATIVE (NEGATIVE); URINE UROBILINOGEN 0.2 mg/dL (0.2-1.0); WHITE BLOOD COUNT 10.2 K/mm3 (4.0-10.0)
[2024-03-27 00:02] LABS: INR 1.03 (0.83-1.09); PROTHROMBIN TIME (PATIENT) 11.6 SEC (9.7-13.0)
[2024-03-27 00:05] LABS: ACTIVATED PTT 34.6 SECONDS (25.2-36.5)
[2024-03-27 00:20] LABS: ALBUMIN 4.2 g/dl (3.4-5.0); BLOOD UREA NITROGEN 10.3 mg/dL (7-18); CALCIUM 9.6 mg/dL (8.5-10.1)
[2024-03-27 00:23] LABS: CREATININE 0.9 mg/dL (0.55-1.3)
[2024-03-27 00:25] LABS: BILIRUBIN,TOTAL 0.4 mg/dL (0.2-1); TOT PROT 7.2 g/dl (6.4-8.2)
[2024-03-27] MEDS ORDERED: levETIRAcetam 500 MG/5 ML INJECTION VIAL IVPB ONE (02:34)
[2024-03-27] MEDS: levETIRAcetam 500 MG/5 ML INJECTION VIAL IVPB ONE (02:59)
[2024-03-27 03:06] VITALS: BP 122/76; PULSE 70; TEMP 98
[2024-03-27 12:49] LABS: COCAINE, UR NEGATIVE (NEGATIVE)
[2024-03-27 12:50] LABS: METHADONE, UR NEGATIVE (NEGATIVE); PHENCYCLIDINE,URINE NEGATIVE (NEGATIVE)
[2024-03-27 13:14] LABS: OPIATES, URI POSITIVE (NEGATIVE); URINE AMPHETAMINES NEGATIVE (NEGATIVE); URINE BARBITURATES NEGATIVE (NEGATIVE); URINE BENZODIAZEPINES POSITIVE (NEGATIVE)
== END 2024-03-27 03:05 | disposition home or self-care (01) ==
LOC: JER 22:30
DX: G40.909 Epilepsy, unspecified, not intractable, without status epilepticus (principal)
CPT/HCPCS: 0241U-QW; 36415; 70450-TC; 80053; 80307; 81003; 83605; 85025; 85610; 85730; 87086; 99284-25; J0131